=== PATIENT | male | born 1955 | race Caucasian/White ===

== ENCOUNTER 2017-02-01 13:20 | Inpatient (IN) | payer OTHER ==
[~2017-02-01] VITALS: Ht 188 cm; Wt 147.9 kg
[2017-02-01] MEDS ORDERED: METO50TA PO (14:43)
[2017-02-02] MEDS ORDERED: NEOSTIGMINE 3 MG/3 ML SYR IV ONE (07:32)
[2017-02-02] MEDS ORDERED: PROPOFOL 200 MG/20 ML AMP IV ONE (07:32)
[2017-02-02] MEDS ORDERED: ONDANSETRON HCL 4 MG/2 ML VIAL IV PUSH ONE (07:33)
[2017-02-02] MEDS ORDERED: PHENYLEPH/NS 1000 MCG/10 ML SYR IV ONE (07:33)
[2017-02-02] MEDS ORDERED: LACTATED RINGER'S 1000 ML INJ 1,000 ML IV ONE (07:33)
[2017-02-02] MEDS ORDERED: LACTATED RINGER'S 1000 ML IV PRN (12:00)
[2017-02-02] MEDS ORDERED: POVIDONE IODINE 5% (ANTISEPSIS KIT) 4 APPLICATIONS EACH NARE PRN (12:00)
[2017-02-02] MEDS ORDERED: SODIUM CHLORID 0.9% 500 ML IV PRN (12:00)
[2017-02-02] MEDS ORDERED: INSULIN HUMAN REGULAR 1,000 UNITS/10 ML VIAL SQ PRN (12:00)
[2017-02-02] MEDS ORDERED: CHLORHEXIDINE GLUCONATE 2 % 1 PACK (2 CLOTHS) TOPICAL PRN (12:00)
[2017-02-02] MEDS ORDERED: METOPROLOL TARTRATE 25 MG TAB PO PRN (12:00)
[2017-02-02] MEDS: POVIDONE IODINE 7.5% SCRUB 118 ML BOTTLE TOPICAL SCH (12:15)
[2017-02-02] MEDS ORDERED: ATOR40TA16 PO (12:22)
[2017-02-02 12:24] VITALS: BP 153/86; PULSE 98; RESP 18; TEMP 97; O2SAT 98
[2017-02-02] MEDS: EXPAREL PERI-ARTICULAR INJECTION (TOTAL VOL. 60 ML) P-ARTICULR SCH ×4 (12:30→16:49)
[2017-02-02] MEDS: TRANEXAMIC ACID IV SCH ×2 (12:30→16:35)
[2017-02-02] MEDS: SODIUM CHLORIDE 0.9% IV SCH ×2 (12:30→16:35)
[2017-02-02] MEDS ORDERED: APREPITANT 40 MG CAP ONE (13:51)
[2017-02-02] MEDS ORDERED: GENTAMICIN SULFATE 80 MG/2 ML VIAL ONE ×2 (15:03→17:20)
[2017-02-02] MEDS ORDERED: VANCOMYCIN HCL 1000 MG VIAL ONE ×2 (15:05→15:14)
[2017-02-02] MEDS ORDERED: fentaNYL CITRATE 250 MCG/5 ML AMP ONE ×2 (15:09→19:05)
[2017-02-02] MEDS ORDERED: ACETAMINOPHEN 1000 MG/100 ML VIAL IV ONE (15:09)
[2017-02-02] MEDS ORDERED: MIDAZOLAM HCL 2 MG/2 ML VIAL ONE (15:09)
[2017-02-02] MEDS ORDERED: TOBRAMYCIN SULF 0.3% OPHT SOLN 5 ML BTL ONE (15:14)
[2017-02-02] MEDS ORDERED: DEXAMETHASONE SOD PHOS 4 MG/ML VIAL ONE (15:20)
[2017-02-02] MEDS ORDERED: TOBRAMYCIN SULFATE 1200 MG VIAL OTHER ONE (16:49)
[2017-02-02] MEDS ORDERED: AMIODARONE HCL 150 MG/3 ML VIAL ONE (17:00)
[2017-02-02] MEDS ORDERED: ONDANSETRON HCL 4 MG/2 ML VIAL IVP PRN (18:30)
[2017-02-02] MEDS ORDERED: BISACODYL 10 MG SUPP RECTAL PRN (18:30)
[2017-02-02] MEDS ORDERED: NALOXONE HCL 0.4 MG/ML AMP IV PRN (18:30)
[2017-02-02] MEDS ORDERED: ACETAMINOPHEN/HYDROcodone 325 MG/5 MG TAB PO PRN ×2 (18:30)
[2017-02-02] MEDS ORDERED: MAGNESIUM HYDROXIDE SUSP 30 ML CUP PO PRN (18:30)
[2017-02-02] MEDS ORDERED: Post-op Orders (for Pharmacy) MISC XX ONE (18:30)
[2017-02-02] MEDS ORDERED: SODIUM CHLORIDE 0.9% FLUSH 5 ML FLUSH IVF PRN (18:30)
[2017-02-02] MEDS ORDERED: ALUMINUM/MAGNESIUM/SIMETH 30 ML CUP PO PRN (18:30)
[2017-02-02] MEDS ORDERED: MORPHINE SULFATE 4 MG/ML INJ IV PUSH PRN (18:30)
[2017-02-02] MEDS ORDERED: diphenhydrAMINE HCL 50 MG/ML VIAL IV PRN (18:30)
--- NOTE | 2017-02-02 18:41 | PD.OP ---
Operative Report Date of Surgery: Feb 02, 2017 Preoperative Diagnosis: Left knee infected total knee arthroplasty. Postoperative Diagnosis: Left knee infected total knee arthroplasty.. 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 Procedure: Left knee irrigation and debridement with removal of total knee arthroplasty and implantation of antibiotic spacer. Left knee sequestrectomy for osteoarthritis of patella and distal femur. Left knee application of antibiotic beads. Anesthesia: Gen. Surgeon: Nnamdi Kebede Proc Tech(s): MIRELLA Marrero The surgical procedure was assisted by my Advanced Registered Nurse Practitioner. My TUBE FITTER presence was necessary throughout this case for the manipulation and positioning of the surgical extremity. My TUBE FITTER was assisting me throughout the duration of this procedure. The skill set of an Advance Registered Nurse Practitioner was medically necessary to complete this procedure. During the surgical case, the interventional technologist was working at the back table and the Advance Registered Nurse Practitioner was directly assisting me. Operation and Findings: IMPLANTS: ExacTech large antibiotic spacer. Stimulan antibiotic beads ESTIMATED BLOOD LOSS: 350 cc TOURNIQUET TIME: 58 minutes at 300 mmHg pressure. JUSTIFICATION FOR PROCEDURE: The patient has a history of a knee replacement performed by another physician. He presented with a septic joint which was acute in nature. He was treated for a hospital with irrigation and debridement and polyethylene liner exchange. The patient was found to have methicillin sensitive Staphylococcus aureus. He was treated with intravenous antibiotics followed by oral antibiotics. The patient just recently developed a new swelling in the knee which was aspirated showing very high white cell count suspicious for recurrent infection. He understood the risks and benefits of surgery please see the office notes for further details. PROCEDURE: The patient was brought back to the operative theatre. Adequate anesthesia was obtained. The patient received intravenous vancomycin AFTER the intraoperative cultures were obtained. The lower extremity was prepped and draped in the usual sterile fashion.The leg was elevated for 3 minutes, the tourniquet was raised. A standard anterior incision was performed followed by medial parapatellar arthrotomy was performed. We found approximately 100 cc of purulent fluid. We took 2 culture swabs of this. Later in the case we took 2 deep tissue cultures 1 from bone and one from the synovium. We exposed the patella which initially appeared to be well fixed but then was found to be fairly loose. We found deep infection in the bone underneath the patella. We used an oscillating saw to shave down some of the bone and we also used a curette on the areas of osteomyelitis to perform a sequestrectomy. There was significant synovial hyperplasia which was excised. There were a yellowish fragments of synovium which were proliferative which were removed. We used osteotomes to remove the distal femur and we found several pockets of purulence at the distal end of the femur and by the posterior condyles. This represented osteomyelitis which was curetted and removed for the sequestrectomy. We did enter the distal femoral canal as well which had some purulence. The polyethylene was removed which was in good condition. The proximal tibial prosthesis was removed. This was well fixed with no signs of deep infection beneath it. There was abundant cement which was all removed. We entered the proximal tibial canal and did not find any purulence. We then used a wire brush to clean the femoral and tibial canals. We completed our synovectomy in the gutters and posterior aspect of the knee at this point. We did find a small abscess up by the extensor mechanism anteriorly as well which was debrided. After complete debridement, including a lavage of 6 L of saline laden with antibiotics , was performed we exchanged the instruments, placed new drapes on top, and exchanged gloves. We sized the femur for the ExacTech implant. This implant has antibiotics within it. We mixed cement which had added vancomycin to it. The cement already had tobramycin. We have previously mixed stimulan antibiotic beads which we added tobramycin and vancomycin. This had been done on the clean back table. The tourniquet was released. Hemostasis was achieved. The ExacTech spacer was cemented into position. We then placed the beads around this. We placed a deep drain. We closed the extensor mechanism with #2 strata fix augmented with Prolene. Skin was closed with 2-0 Monocryl followed by mitchell. The leg was dressed. Postop plan is for 50% weightbearing with the canvas knee splint. DVT prophylaxis will be performed with SCDs, ELIANE hose, early mobilization, and Lovenox followed by aspirin. We will request a infectious disease consultation. Note that the patient was found to have atrophic fibrillation with a rapid response prior to surgery. Since the patient had purulence in the knee we decided to move forward with surgical management. This was taken care of by the anesthesiologist to obtain a better rate. We will consult an brewmaster in the ICU for management of his medical conditions and we will also ask for medical consultation as well. Nnamdi Kebede MD Feb 02, 2017 18:41
[2017-02-02] MEDS ORDERED: ASPI325T PO (18:43)
[2017-02-02] MEDS ORDERED: ENOX40P SQ (18:43)
[2017-02-02] MEDS ORDERED: NORC5TAB PO (18:43)
[2017-02-02] MEDS ORDERED: HYDROmorphone HCL PF 2 MG/ML VIAL IV PUSH PRN (18:45)
[2017-02-02] MEDS ORDERED: DO NOT ADM ANY ANTICOAGULANT DRUGS PRN (18:54)
[2017-02-02] MEDS ORDERED: *HYDROmorphone PF 1 MG VIAL PERIprocedural Use ONLY ONE (19:08)
[2017-02-02] MEDS: SODIUM CHLOR 0.9% 1000 ML INJ 1,000 ML IV SCH (19:30)
--- NOTE | 2017-02-02 19:55 | RADRPT ---
EXAM DATE/TIME: 02/02/2017 20:06 [facility] COMPARISON: No previous studies available for comparison. INDICATIONS : Post op, removal of prosthesis. MEDICAL HISTORY : None. SURGICAL HISTORY : None. Left total knee ENCOUNTER: Initial ACUITY: 1 day PAIN SCORE: 10/10 LOCATION: Left knee FINDINGS: Two view examination of the left knee demonstrates postoperative findings with placement of drain in soft tissues. Skin mitchell anteriorly. Extensive soft tissue swelling. Joint effusion present. Radiop aque beads overlie the distal femur and proximal tibia. CONCLUSION: 1. Postoperative changes as above. Normal alignment. Nikolay Dowling MD on February 02, 2017 at 19:51 Board Certified Radiologist. This report was verified electronically.
[2017-02-02] MEDS ORDERED: TRANEXAMIC ACID INJ 1,450 MG in SODIUM CHLORIDE 0.9% INJ 100 ML IV SCH (20:00)
[2017-02-02] MEDS: SODIUM CHLORIDE 0.9% FLUSH 5 ML FLUSH IVF SCH (21:00)
[2017-02-02] MEDS: CLINDAMYCIN INJ 900 MG in SODIUM CHLORIDE 0.9% INJ 100 ML IV SCH (21:58)
[2017-02-03] VITALS (17 sets, daily range): BP systolic 132–163; BP diastolic 73–94; PULSE 52–91; RESP 18; TEMP 97.3–98.6; O2SAT 95–98
[2017-02-03] MEDS: BENZONATATE 100 MG CAP PO PRN ×4 (00:25→21:35)
[2017-02-03] MEDS: SODIUM CHLOR 0.9% 1000 ML INJ 1,000 ML IV SCH ×2 (04:22→14:22)
[2017-02-03] MEDS: VANCOMYCIN INJ 1,000 MG in SODIUM CHLOR 0.9% 250 ML INJ 250 ML IV SCH ×2 (05:00→16:52)
[2017-02-03] MEDS: CLINDAMYCIN INJ 900 MG in SODIUM CHLORIDE 0.9% INJ 100 ML IV SCH ×2 (05:00→13:44)
[2017-02-03 06:20] LABS: HEMATOCRIT 32.2 % (39.0-51.0); MEAN CELL VOLUME 83.8 FL (80.0-100.0); MEAN CORPUSCULAR HGB CONC 33.4 % (32.0-36.0); PLATELET COUNT 368 TH/MM3 (150-450); RED BLOOD COUNT 3.84 MIL/MM3 (4.50-5.90); RED CELL DISTRIBUTION WIDTH 13.9 % (11.6-17.2); REVIEW FLAG FINAL; WHITE BLOOD COUNT 11.1 TH/MM3 (4.0-11.0)
[2017-02-03] MEDS: SODIUM CHLORIDE 0.9% FLUSH 5 ML FLUSH IVF SCH ×2 (09:00→21:00)
--- NOTE | 2017-02-03 10:13 | MB ---
cc: BARAK VERAS DATE OF CONSULTATION: 02/03/2017 1956 REASON FOR CONSULTATION Atrial fibrillation. PAST MEDICAL HISTORY 61-year-old male with a past medical history significant for chronic atrial fibrillation status post three ablations, hypertension, obesity, hyperlipidemia , that was admitted yesterday for left knee I&D, removal of left total knee arthroplasty and implantation of antibiotic spacer in the setting of left knee osteomyelitis. The patient reports that after the procedure he had an episode of atrial fibrillation in the PACU. Thus, cardiology has been consulted for further management and evaluation. He denied any chest pain, shortness of breath, syncope, fevers, chills, nausea, vomiting. Of note, after the ablations he is off chronic oral anticoagulation. REVIEW OF SYSTEMS Negative except for what is mentioned in the HPI. PAST MEDICAL HISTORY 1. Hypertension. 2. Hyperlipidemia. 3. Atrial fibrillation, atrial flutter status post ablations. 4. Obesity. Home medications: 1. Aspirin 325 mg p.o. daily. 2. Lipitor 40 mg p.o. daily. 3. Hydrocodone acetaminophen 1-2 tabs p.o. q.4 hour p.r.n. for pain. 4. Metoprolol 50 mg p.o. b.i.d. FAMILY HISTORY Noncontributory. SOCIAL HISTORY Denies alcohol use, smoking or illicit drug use. PHYSICAL EXAMINATION VITAL SIGNS: Temperature 97, heart rate 73, respiratory rate 18, blood pressure 145/87, O2 sat 97% on room air. GENERAL: Awake, alert and oriented x 3, in no acute distress. NECK: No JVD, no carotid bruits. HEART: Regular rate and rhythm. No murmurs, rubs or gallops. LUNGS: Clear to auscultation bilaterally. No wheezes or rhonchi or rales. ABDOMEN: Obese. Positive bowel sounds, soft, nontender, nondistended. EXTREMITIES: No cyanosis or edema. LABORATORY DATA CBC hemoglobin 10, hematocrit 32, CRP 5.54. EKG Sinus rhythm with a right bundle branch block. ASSESSMENT/PLAN 61-year-old male with an episode of atrial fibrillation post surgery, now resolved in sinus rhythm. He remains afebrile, hemodynamically stable with no cardiovascular complaints. Brief atrial fibrillation episode most likely from the catecholaminergic response to stress in the setting of the recent surgery. No EKG changes to suggest of ischemia. 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 The patient should follow with cardiology on an outpatient basis. Thank you for the opportunity to take part in the care of this patient. Will be available p.r.n. for any other questions or concerns. Barak Veras MD COMFORT FILLER/TLL /9:26 AM /9:44 AM MTDNacho
[2017-02-03] MEDS: POVIDONE IODINE 7.5% SCRUB 118 ML BOTTLE TOPICAL SCH (12:15)
--- NOTE | 2017-02-03 15:53 | PD.ORT.PN ---
Subjective Subjective Remarks feels ok, no numbness or tingling drain emptied with 80cc serosang Objective Vitals Vital Signs Date Time Temp Pulse Resp B/P Pulse Ox O2 Delivery O2 Flow Rate FiO2 02/03/17 15:10 82 02/03/17 14:00 86 02/03/17 13:00 79 02/03/17 12:00 80 02/03/17 11:00 97.8 91 18 154/87 95 02/03/17 10:00 90 02/03/17 09:00 90 02/03/17 08:00 90 02/03/17 07:00 97.9 88 18 145/87 97 02/03/17 07:00 68 02/03/17 05:35 98.6 73 18 132/73 98 02/03/17 00:00 97.3 79 18 144/87 96 02/02/17 23:00 72 16 152/84 95 Nasal Cannula 2 02/02/17 22:00 72 16 169/95 95 Nasal Cannula 2 02/02/17 21:00 73 14 172/95 95 Nasal Cannula 2 02/02/17 20:15 97.0 70 12 162/92 98 Nasal Cannula 2 02/02/17 20:00 69 12 163/89 97 Nasal Cannula 2 02/02/17 19:45 63 14 164/88 97 Nasal Cannula 2 02/02/17 19:30 60 14 163/90 97 Nasal Cannula 2 02/02/17 19:15 81 14 147/81 97 Nasal Cannula 3 02/02/17 19:00 118 14 183/122 96 Nasal Cannula 3 02/02/17 18:53 97.6 122 14 160/119 99 Nasal Cannula 3 I/O 02/02/17 02/02/17 02/02/17 02/03/17 02/03/17 02/03/17 07:00 15:00 23:00 07:00 15:00 23:00 Intake Total 2133 ml 2060 ml Output Total 1190 ml 1870 ml Balance 943 ml 190 ml Intake Oral 860 ml IV Total 433 ml 1200 ml Other 1700 ml Output Urine Total 975 ml 1800 ml Drainage Total 165 ml 70 ml Estimated Blood Loss 50 ml # Voids 1 Result Diagram: 02/03/17 0505 Imaging Last 24 hours Impressions Knee X-Ray 02/02/17 1822 Signed Impressions: Service Date/Time: Thursday, February 02, 2017 20:06 - CONCLUSION: 1. Postoperative changes as above. Normal alignment. Nikolay Dowling MD Objective Remarks L leg dressed, and clean 2+ dp moves toes serosang in drain calf non-tender Assessment & Plan Assessment and Plan POD #1 s/p L knee Removal of TKA with ABX spacer/ABX beads, and I&D of osteomyelitis. Culx are still pending (recent h/o MSSA from recent I&D with poly exchange) Lovenox 50% WB with CKS Appreciate cardiac input (brief a. fib post-op, currently in NSR), no active treatment recommended other than telemetry D/C drain tomorrow Pending ID consult -> will need PICC line Nnamdi Kebede MD Feb 03, 2017 15:52
--- NOTE | 2017-02-03 16:06 | HHI.DCPOC ---
Discharge Care Plan Diagnosis: (1) Infection of total left knee replacement Your Health Problems Are: Difficulty with ADL Goals to Promote Your Health * To prevent worsening of your condition and complications * To maintain your health at the optimal level Directions to Meet Your Goals Take your medications as prescribed Follow your dietary instruction Follow activity as directed Keep your appointments as scheduled Take your immunizations and boosters as scheduled If your symptoms worsen call your PCP, if no PCP go to Urgent Care Center or Emergency Room Smoking is Dangerous to Your Health. Avoid second hand smoke Call the 24-hour hour crisis hotline for domestic abuse at Jeremiah Younger Feb 03, 2017 16:05
--- NOTE | 2017-02-03 16:07 | HHI.FF ---
Face to Face Verification Diagnosis: (1) Infection of total left knee replacement Physical Therapy Gait training, Transfer training, bed to chair Knee: Other Canvas Knee Splint: At all times Left LE Weight Bearing: Partial WB 50% Left LE Range of Motion: Active ROM Nursing Nursing: Arleen teaching, Dressing changes Dressing Changes: Daily dressing change I have seen patient Estevan Stafford on 02/03/17. My clinical findings support the need for the requested home health care services because: Limited ability to care for self High risk of falls I certify that my clinical findings support that this patient is homebound because: Post-op weakness Unsteady gait/balance Jeremiah Younger Feb 03, 2017 16:07
[2017-02-03] MEDS ORDERED: COMMODE 3-IN-11 MIS (16:10)
[2017-02-03] MEDS ORDERED: WALKER WHEELS/F1 MIS (16:10)
[2017-02-03] MEDS: ENOXAPARIN SODIUM 40 MG/0.4 ML SYRINGE SQ SCH (16:52)
[2017-02-03] MEDS ORDERED: ACETAMINOPHEN 325 MG TAB PO ONE (18:30)
[2017-02-03] MEDS: MULTIVITAMINS/MINERALS THERAPEUTIC TAB PO SCH (21:36)
[2017-02-03] MEDS: METOPROLOL TARTRATE 50 MG TAB PO SCH (21:36)
[2017-02-03] MEDS: DOCUSATE SODIUM 100 MG CAP PO SCH (21:36)
[2017-02-03] MEDS: ZOLPIDEM TARTRATE 5 MG TAB PO PRN (21:36)
--- NOTE | 2017-02-03 22:44 | PD.ID.CON ---
History of Present Illness Service ID Consult Requested By Dr Kebede Reason for Consult L prosthetic knee infx Primary Care Physician No Primary Care Physician Diagnoses: History of Present Illness 61 yo male with h/o L knee prosthesis initially put in 4-5 yrs ago infx developped MSSA infection of prosthetic knee after a fall He was treated with IV abx, followed by oral abx, and sp surgery n [place] He was given IV followed by oral abx He is seen by Dr Bright He developped angioedema a/w Keflex use during this treatment He con to have persistent L knee pain and swelling despite of abxc He saw Dr Kebede ad he performed aspiration of synovial fluid for clx and it was sent to [facility] pt underwent Left knee irrigation and debridement with removal of total knee arthroplasty and implantation of antibiotic spacer,Left knee sequestrectomy for osteoarthritis of patella and distal femur and Left knee application of antibiotic beads. Op report was reviewed: deep infection in the bone underneath the patella, osteomyelitis, several pockets of purulence at the distal end of the femur and by the posterior condyles. Review of Systems Except as stated in HPI: all other systems reviewed are Neg Past Family Social History Allergies: Coded Allergies: Keflex (Verified Allergy, Severe, lips swell, 02/02/17) Lisinopril (Verified Allergy, Severe, Swelling, 02/01/17) ANGIOEDEMA Morphine (Verified Allergy, Severe, Confusion, 02/01/17) CAUSES CHEST PAIN Past Medical History morbid obesity obstructiv sleep apnea HTN a fib Past Surgical History TKA b/l R ankle ORIF ablation x 3 Active Ordered Medications Medications where reviewed in EMR Antibiotics Include: vancomycin clindamycin Family History Non-Contributory. Social History No Tobacco. social ETOH. No Illicit Drugs. Physical Exam Vital Signs Vital Signs Date Time Temp Pulse Resp B/P Pulse Ox O2 Delivery O2 Flow Rate FiO2 02/03/17 18:05 84 02/03/17 17:00 82 02/03/17 16:00 86 02/03/17 15:10 82 02/03/17 15:00 97.7 80 18 163/94 98 02/03/17 14:00 86 02/03/17 13:00 79 02/03/17 12:00 80 02/03/17 11:00 97.8 91 18 154/87 95 02/03/17 10:00 90 02/03/17 09:00 90 02/03/17 08:00 90 02/03/17 07:00 97.9 88 18 145/87 97 02/03/17 07:00 68 02/03/17 05:35 98.6 73 18 132/73 98 02/03/17 00:00 97.3 79 18 144/87 96 02/02/17 23:00 72 16 152/84 95 Nasal Cannula 2 Physical Exam CONSTITUTIONAL/GENERAL: This is a morbidly obese male patient, in no apparent distress. TUBES/LINES/DRAINS: SKIN: No jaundice, rashes, or lesions. Skin temperature appropriate. Not diaphoretic. HEAD: Atraumatic. Normocephalic. EYES: Pupils equal and round and reactive. Extraocular motions intact. No scleral icterus. No injection or drainage. Fundi not examined. ENT: Hearing grossly normal. Nose without bleeding or purulent drainage. Throat without visible erythema, exudates, masses, or lesions. NECK: Trachea midline. Supple, nontender. CARDIOVASCULAR: Regular rate and rhythm without murmurs, gallops, or rubs. No JVD. Peripheral pulses symmetric. RESPIRATORY/CHEST: Symmetric, unlabored respirations. Clear to auscultation. Breath sounds equal bilaterally. No wheezes, rales, or rhonchi. GASTROINTESTINAL: Abdomen soft, non-tender, nondistended. No hepato-splenomegaly , or palpable masses. No guarding. Bowel sounds present. GENITOURINARY: Without palpable bladder distension. MUSCULOSKELETAL: Extremities without clubbing, cyanosis, or edema. LLE with surgical dresising, brace in place, inact HEMANTH dran with small amount of serosang dc No mottling or clubbing. LYMPHATICS: No palpable cervical or supraclavicular adenopathy. NEUROLOGICAL: Awake and alert. Motor and sensory grossly within normal limits. Follows commands. Moves all extremities. PSYCHIATRIC: No obvious anxiety/depression.. Laboratory Laboratory Tests Test 02/03/17 05:05 White Blood Count 11.1 Red Blood Count 3.84 Hemoglobin 10.8 Hematocrit 32.2 Mean Corpuscular Volume 83.8 Mean Corpuscular Hemoglobin 28.0 Mean Corpuscular Hemoglobin 33.4 Concent Red Cell Distribution Width 13.9 Platelet Count 368 Mean Platelet Volume 6.9 Date/Time Procedure Status Source Growth 02/02/17 16:56 Gram Stain - Final Resulted Wound Knee 02/02/17 16:56 Wound Culture - Preliminary Resulted Wound Knee NO GROWTH IN 24 HOURS. 02/02/17 16:56 Fungal Smear - Final Resulted Wound Knee NO FUNGAL ELEMENTS SEEN. 02/02/17 16:56 Fungal Culture Resulted Wound Knee Pending 02/02/17 16:56 Acid Fast Stain Received Wound Knee Pending 02/02/17 16:56 Mycobacterial Culture Received Wound Knee Pending Result Diagram: 02/03/17 0505 Imaging Last Impressions Knee X-Ray 02/02/17 1822 Signed Impressions: Service Date/Time: Thursday, February 02, 2017 20:06 - CONCLUSION: 1. Postoperative changes as above. Normal alignment. Nikolay Dowling MD Assessment and Plan Assessment and Plan Left knee infected total knee arthroplasty.. 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 Previously MSSA HIgh grade Keflex allergy, preclusive of use of beta lactams cont vancomycin, target trough 15-20 will get clsx result from [facility] -will fu op clx Nano Kim MD Feb 03, 2017 22:44
[2017-02-04] VITALS (23 sets, daily range): BP systolic 121–164; BP diastolic 71–90; PULSE 58–86; RESP 18; TEMP 97.5–98.2; O2SAT 95–99
[2017-02-04] MEDS: SODIUM CHLOR 0.9% 1000 ML INJ 1,000 ML IV SCH ×3 (00:22→21:53)
[2017-02-04] MEDS: CLINDAMYCIN INJ 900 MG in SODIUM CHLORIDE 0.9% INJ 100 ML IV SCH ×4 (01:14→21:53)
[2017-02-04] MEDS: VANCOMYCIN INJ 1,000 MG in SODIUM CHLOR 0.9% 250 ML INJ 250 ML IV SCH ×2 (05:53→16:28)
[2017-02-04] MEDS: ACETAMINOPHEN 325 MG TAB PO PRN ×3 (05:58→21:52)
[2017-02-04 07:02] LABS: HEMATOCRIT 31.9 % (39.0-51.0); MEAN CELL VOLUME 84.8 FL (80.0-100.0); MEAN CORPUSCULAR HEMOGLOBIN 28.1 PG (27.0-34.0); MEAN CORPUSCULAR HGB CONC 33.1 % (32.0-36.0); PLATELET COUNT 350 TH/MM3 (150-450); RED BLOOD COUNT 3.76 MIL/MM3 (4.50-5.90); REVIEW FLAG FINAL; WHITE BLOOD COUNT 9.1 TH/MM3 (4.0-11.0)
[2017-02-04] MEDS: SODIUM CHLORIDE 0.9% FLUSH 5 ML FLUSH IVF SCH ×2 (08:58→21:00)
[2017-02-04] MEDS: MULTIVITAMINS/MINERALS THERAPEUTIC TAB PO SCH ×2 (08:58→21:51)
[2017-02-04] MEDS: DOCUSATE SODIUM 100 MG CAP PO SCH ×2 (08:58→21:51)
[2017-02-04] MEDS: METOPROLOL TARTRATE 50 MG TAB PO SCH ×2 (08:58→21:52)
[2017-02-04] MEDS: POVIDONE IODINE 7.5% SCRUB 118 ML BOTTLE TOPICAL SCH (11:23)
--- NOTE | 2017-02-04 13:06 | PD.ORT.PN ---
Subjective Post Op Day #: 2 Subjective Remarks Patient in bed c/o moderate pain. Patient has been ambulatory. Objective Vitals Vital Signs Date Time Temp Pulse Resp B/P Pulse Ox O2 Delivery O2 Flow Rate FiO2 02/04/17 12:00 68 02/04/17 11:00 63 02/04/17 11:00 98.1 72 18 150/83 97 02/04/17 10:00 81 02/04/17 09:00 80 02/04/17 08:04 82 02/04/17 07:15 76 02/04/17 07:15 98.2 71 18 152/84 99 02/04/17 06:00 60 02/04/17 05:04 60 02/04/17 04:14 59 02/04/17 03:03 61 02/04/17 03:03 98.2 69 18 135/81 98 02/04/17 00:00 98.2 69 18 122/77 98 02/03/17 20:00 98.0 91 18 157/90 98 02/03/17 19:00 90 02/03/17 18:05 84 02/03/17 17:00 82 02/03/17 16:00 86 02/03/17 15:10 82 02/03/17 15:00 97.7 80 18 163/94 98 02/03/17 14:00 86 I/O 02/03/17 02/03/17 02/03/17 02/04/17 02/04/17 02/04/17 07:00 15:00 23:00 07:00 15:00 23:00 Intake Total 2060 ml 1680 ml 2040 ml Output Total 1870 ml 2830 ml 1825 ml Balance 190 ml -1150 ml 215 ml Intake Oral 860 ml 1680 ml 740 ml IV Total 1200 ml 1300 ml Output Urine Total 1800 ml 2750 ml 1775 ml Drainage Total 70 ml 80 ml 50 ml # Bowel Movements 0 Result Diagram: 02/04/17 0445 Imaging Last 24 hours Impressions Knee X-Ray 02/02/17 1822 Signed Impressions: Service Date/Time: Thursday, February 02, 2017 20:06 - CONCLUSION: 1. Postoperative changes as above. Normal alignment. Nikolay Dowling MD Objective Remarks Dressing changed with scant drainage around drain, no drainage at incision. No redness or s/s of infection. Incision is well approximated with surgical clips intact. 2+ dp moves toes serosang in drain calf non-tender Assessment & Plan Ortho Post Op Day #: 2 Problem List: Assessment and Plan POD #2 s/p L knee Removal of TKA with ABX spacer/ABX beads, and I&D of osteomyelitis. Culx are still pending (recent h/o MSSA from recent I&D with poly exchange). Preliminary results show Gram + Cocci Lovenox 50% WB with CKS Appreciate cardiac input (brief a. fib post-op, currently in NSR), no active treatment recommended other than telemetry D/C drain tomorrow if drainage has subsided ID to manage ABX-> will need PICC line Jeremiah Younger Feb 04, 2017 13:06
[2017-02-04] MEDS: ENOXAPARIN SODIUM 40 MG/0.4 ML SYRINGE SQ SCH (18:19)
[2017-02-04] MEDS: BENZONATATE 100 MG CAP PO PRN (21:51)
[2017-02-04] MEDS: ZOLPIDEM TARTRATE 5 MG TAB PO PRN (21:52)
[2017-02-05] VITALS (27 sets, daily range): BP systolic 135–159; BP diastolic 81–93; PULSE 56–106; TEMP 97.4–97.8; O2SAT 96–99
[2017-02-05] MEDS: CLINDAMYCIN INJ 900 MG in SODIUM CHLORIDE 0.9% INJ 100 ML IV SCH ×3 (05:21→21:29)
[2017-02-05] MEDS: VANCOMYCIN INJ 1,000 MG in SODIUM CHLOR 0.9% 250 ML INJ 250 ML IV SCH ×2 (05:21→16:41)
[2017-02-05] MEDS: SODIUM CHLOR 0.9% 1000 ML INJ 1,000 ML IV SCH ×2 (06:00→11:51)
[2017-02-05 06:53] LABS: AUTOMATED NEUTROPHIL # 4.7 TH/MM3 (1.8-7.7); BASOPHIL # 0.1 TH/MM3 (0-0.2); BASOPHIL % 0.9 % (0.0-2.0); EOSINOPHIL # 0.5 TH/MM3 (0-0.4); HEMATOCRIT 32.4 % (39.0-51.0); HEMO FLAGS DIFF FINAL; LYMPH % 28.1 % (9.0-44.0); LYMPHOCYTE # 2.5 TH/MM3 (1.0-4.8); MEAN CELL VOLUME 83.7 FL (80.0-100.0); MEAN CORPUSCULAR HEMOGLOBIN 27.5 PG (27.0-34.0); MEAN CORPUSCULAR HGB CONC 32.9 % (32.0-36.0); MONO % 11.6 % (0.0-8.0); NEUT % 53.4 % (16.0-70.0); PLATELET COUNT 339 TH/MM3 (150-450); RED BLOOD COUNT 3.87 MIL/MM3 (4.50-5.90); WHITE BLOOD COUNT 8.8 TH/MM3 (4.0-11.0)
[2017-02-05 07:06] LABS: BICARBONATE 25.2 MEQ/L (21.0-32.0); POTASSIUM 3.7 MEQ/L (3.5-5.1)
[2017-02-05] MEDS: SODIUM CHLORIDE 0.9% FLUSH 5 ML FLUSH IVF SCH ×2 (09:00→21:00)
[2017-02-05] MEDS: DOCUSATE SODIUM 100 MG CAP PO SCH ×2 (09:26→21:29)
[2017-02-05] MEDS: METOPROLOL TARTRATE 50 MG TAB PO SCH ×2 (09:27→21:29)
[2017-02-05] MEDS: ACETAMINOPHEN 325 MG TAB PO PRN ×2 (09:27→16:45)
[2017-02-05] MEDS: MULTIVITAMINS/MINERALS THERAPEUTIC TAB PO SCH ×2 (09:27→21:29)
[2017-02-05] MEDS ORDERED: SODIUM CHLORIDE 0.9% FLUSH 10 ML FLUSH IV FLUSH PRN (15:30)
--- NOTE | 2017-02-05 16:07 | RADRPT ---
EXAM DATE/TIME: 02/05/2017 15:19 [facility] COMPARISON: CHEST PA & LAT, February 01, 2017, 14:34. INDICATIONS : Evaluate for picc line placement. MEDICAL HISTORY : None. SURGICAL HISTORY : Heart Ablasions. ENCOUNTER: Subsequent ACUITY: 1 day PAIN SCORE: Non-responsive. LOCATION: chest FINDINGS: A single view of the chest demonstrates the lungs to be symmetrically aerated without infiltrate or e ffusion. Questionable dense nodule laterally in the region of the lingula may represent a small granu lomatous type calcification. The cardiomediastinal contours are unremarkable. Osseous structures ar e intact. Right upper extremity PICC line with the tip projecting over the central venous system. CONCLUSION: 1. Right upper extremity PICC line with the tip projecting over the central venous system. 2. Questionable sub-centimeter dense nodule in the left lingular region laterally may represent a sma ll granulomatous calcification. Lungs are otherwise clear. Alfonzo Valentine MD on February 05, 2017 at 16:00 Board Certified Radiologist. This report was verified electronically.
[2017-02-05] MEDS: ENOXAPARIN SODIUM 40 MG/0.4 ML SYRINGE SQ SCH (16:42)
--- NOTE | 2017-02-05 17:04 | PD.ORT.PN ---
Subjective Post Op Day #: 3 Subjective Remarks Patient in bed c/o moderate pain. Patient has been ambulatory but is having a difficult time with transfers. Patient had BM today. Patient requesting rehab. Objective Vitals Vital Signs Date Time Temp Pulse Resp B/P Pulse Ox O2 Delivery O2 Flow Rate FiO2 02/05/17 15:00 97.5 79 145/88 98 02/05/17 13:00 72 02/05/17 12:00 74 02/05/17 11:00 66 02/05/17 11:00 97.4 69 159/86 98 02/05/17 10:00 72 02/05/17 09:46 90 02/05/17 08:00 106 02/05/17 08:00 98 02/05/17 07:30 97.7 106 153/93 98 02/05/17 07:00 98 02/05/17 06:21 58 02/05/17 05:00 60 02/05/17 04:39 60 143/86 99 02/05/17 04:00 58 02/05/17 03:00 60 02/05/17 02:00 56 02/05/17 01:00 58 02/05/17 00:37 58 135/82 99 02/05/17 00:00 56 02/04/17 23:00 58 02/04/17 22:00 76 02/04/17 21:00 72 02/04/17 20:26 98 02/04/17 20:00 80 02/04/17 19:00 72 02/04/17 19:00 97.5 78 147/80 97 02/04/17 18:00 69 02/04/17 17:00 73 I/O 02/04/17 02/04/17 02/04/17 02/05/17 02/05/17 02/05/17 07:00 15:00 23:00 07:00 15:00 23:00 Intake Total 2040 ml 3394 ml 480 ml Output Total 1825 ml 3740 ml 1690 ml Balance 215 ml -346 ml -1210 ml Intake Oral 740 ml 2640 ml 480 ml IV Total 1300 ml 754 ml Output Urine Total 1775 ml 3720 ml 1650 ml Stool Total 0 ml Drainage Total 50 ml 20 ml 40 ml # Voids 9 # Bowel Movements 0 Result Diagram: 02/05/17 0508 02/05/17 0508 Imaging Last 24 hours Impressions Knee X-Ray 02/02/17 1822 Signed Impressions: Service Date/Time: Thursday, February 02, 2017 20:06 - CONCLUSION: 1. Postoperative changes as above. Normal alignment. Nikolay Dowling MD Objective Remarks Dressing C/D/I. Drain in place with minimal output over 24 hours. ( < 100 CC) 2+ dp, + NVI moves toes serosang in drain calf non-tender Assessment & Plan Ortho Post Op Day #: 3 Problem List: Assessment and Plan POD #3 s/p L knee Removal of TKA with ABX spacer/ABX beads, and I&D of osteomyelitis. Culx showing Staph Aureus Lovenox 50% WB with CKS Patient has not had any episodes of A-Fib per nursing. If stable per cardiac standpoint (cardiology), I have no problems with patient being downgraded to regular floor. D/C drain today due to decreased output. ID to manage ABX-> PICC line in place. Jeremiah Younger Feb 05, 2017 17:04
[2017-02-06] VITALS (23 sets, daily range): BP systolic 128–162; BP diastolic 72–85; PULSE 53–82; RESP 16–20; TEMP 96.5–98.2; O2SAT 97–99
[2017-02-06] MEDS: SODIUM CHLOR 0.9% 1000 ML INJ 1,000 ML IV SCH ×2 (02:22→12:18)
[2017-02-06] MEDS: CLINDAMYCIN INJ 900 MG in SODIUM CHLORIDE 0.9% INJ 100 ML IV SCH ×2 (04:17→12:15)
[2017-02-06] MEDS: VANCOMYCIN INJ 1,000 MG in SODIUM CHLOR 0.9% 250 ML INJ 250 ML IV SCH ×2 (04:18→16:26)
[2017-02-06] MEDS: DOCUSATE SODIUM 100 MG CAP PO SCH ×2 (07:57→21:02)
[2017-02-06] MEDS: MULTIVITAMINS/MINERALS THERAPEUTIC TAB PO SCH ×2 (07:58→21:02)
[2017-02-06] MEDS: SODIUM CHLORIDE 0.9% FLUSH 10 ML FLUSH IV FLUSH SCH (07:58)
[2017-02-06] MEDS: METOPROLOL TARTRATE 50 MG TAB PO SCH ×2 (07:58→21:02)
[2017-02-06] MEDS: SODIUM CHLORIDE 0.9% FLUSH 5 ML FLUSH IVF SCH ×2 (07:59→21:00)
--- NOTE | 2017-02-06 09:02 | PD.ORT.PN ---
Subjective Subjective Remarks No c/o laying in bed Objective Vitals Vital Signs Date Time Temp Pulse Resp B/P Pulse Ox O2 Delivery O2 Flow Rate FiO2 02/06/17 06:40 62 02/06/17 05:00 58 02/06/17 04:53 61 136/81 99 02/06/17 04:00 56 02/06/17 03:52 66 02/06/17 02:00 66 02/06/17 01:00 64 02/06/17 00:00 70 02/05/17 23:00 73 02/05/17 23:00 64 145/81 99 02/05/17 22:35 96 21 02/05/17 22:00 80 02/05/17 21:00 82 02/05/17 20:00 80 02/05/17 19:00 73 02/05/17 19:00 97.8 74 145/84 96 02/05/17 18:00 70 02/05/17 17:00 74 02/05/17 15:00 97.5 79 145/88 98 02/05/17 15:00 69 02/05/17 14:00 70 02/05/17 13:00 72 02/05/17 12:00 74 02/05/17 11:00 66 02/05/17 11:00 97.4 69 159/86 98 02/05/17 10:00 72 02/05/17 09:46 90 I/O 02/05/17 02/05/17 02/05/17 02/06/17 02/06/17 02/06/17 07:00 15:00 23:00 07:00 15:00 23:00 Intake Total 480 ml 2285 ml 1240 ml Output Total 1690 ml 1400 ml 1800 ml Balance -1210 ml 885 ml -560 ml Intake Oral 480 ml 1000 ml 240 ml IV Total 1285 ml 1000 ml Output Urine Total 1650 ml 1400 ml 1800 ml Drainage Total 40 ml # Bowel Movements 1 Result Diagram: 02/05/17 0508 02/05/17 0508 Imaging Last 24 hours Impressions Knee X-Ray 02/02/17 182 Signed Impressions: Service Date/Time: Thursday, February 02, 2017 20:06 - CONCLUSION: 1. Postoperative changes as above. Normal alignment. Nikolay Dowling MD Objective Remarks Dressing C/D/I. 2+ dp, + NVI moves toes calf non-tender moderate swelling Assessment & Plan Ortho Post Op Day #: 4 Problem List: Assessment and Plan POD #4 s/p L knee Removal of TKA with ABX spacer/ABX beads, and I&D of osteomyelitis. Culx showing Staph Aureus Lovenox 50% WB with CKS I have no problems with patient being downgraded to regular floor, when ok with cardiology ID to manage ABX-> PICC line in place. d/c when arrangements made Hemant Oneil MD Feb 06, 2017 09:01
[2017-02-06] MEDS ORDERED: Vancomycin Consult Pharmacy 1 EA OTHER SCH (14:30)
--- NOTE | 2017-02-06 14:34 | HHI.FF ---
cc: Suresh Ovalle MD, Dr Infusion Therapy Location of Infusion Therapy: [facility] Infusion Therapy Order Patient Information Patient Weight 147.6 kg Diagnosis: Diagnosis Infected prosthetic knee Coded Allergies: Keflex (Verified Allergy, Severe, lips swell, 02/02/17) Lisinopril (Verified Allergy, Severe, Swelling, 02/01/17) ANGIOEDEMA Morphine (Verified Allergy, Severe, Confusion, 02/01/17) CAUSES CHEST PAIN *MDRO Multi-Drug Resistant Organism (Verified Adverse Reaction, Unknown, ) 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 Administer Medication Vancomycin 1.5 grams IV q 12 hours Start Treatment: Feb 06, 2017 Stop Treatment: Mar 18, 2017 Additional Information Venous access: PICC Line Additional Instructions [x] Peripheral flush and dressing changes per protocol [x] 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 [] May leave port accessed during therapy. [] May leave peripheral site accessed for duration of therapy. [x] If patient has SOB or respiratory distress, check oxygen saturation. If less than 90% or clinical signs of respiratory distress, administer oxygen at 2 L/min. via nasal cannula and notify physician. [x] Anaphylaxis/Reaction orders: * Stop infusion. * Keep IV line open with saline flush. * Notify physician. * Monitor vital signs every 15 minutes until symptoms resolve. * Check Oxygen saturation; Oxygen at 2 L/min. via nasal cannula if less than 90% or clinical signs of respiratory distress. * Administer diphenhydramine (Benadryl) 25 mg IV STAT, (unless patient has received as pre-med). May repeat once, if necessary. * Solu-Cortef 250 mg IVP over 30-60 seconds, use 100 mg vials for each dissolution. * Epinephrine (1mg/1 ml) 0.3 mg subcutaneously or IVP now with any signs of respiratory distress. * Check with physician for new additional pre-med orders if patient is re- challenged or re-treated. [x] May remove PICC line when treatment complete, after confirming with Physician. [x] If the patient is admitted to the hospital, the ED, or transferred via [facility] , complete transfer form including medication reconciliation order sheet. Laboratory Tests Weekly Labs: CBC w/diff, Creatinine, SED Rate, Vancomycin Trough Additional Information fu with Dr Bright in 1-2 weeks Nano Kim MD Feb 06, 2017 14:34
[2017-02-06] MEDS: ENOXAPARIN SODIUM 40 MG/0.4 ML SYRINGE SQ SCH (16:26)
--- NOTE | 2017-02-06 17:20 | HHI.PR ---
Addendum to Inpatient Note Additional Information Grew out MRSA will need to cont IV abx x 6 wks then might still require oral additional abx fu with Dr Bright after dc who is the pt's ID specialist Nano Kim MD Feb 06, 2017 17:20
[2017-02-07] MEDS ORDERED: PHARMACY ORDERED LAB ONE (04:45)
[2017-02-07 05:52] LABS: VANCOMYCIN TROUGH 5.8 MCG/ML (5.0-10.0)
[2017-02-07] MEDS: VANCOMYCIN INJ 1,000 MG in SODIUM CHLOR 0.9% 250 ML INJ 250 ML IV SCH (06:30)
[2017-02-07 08:00] VITALS: BP 157/80; PULSE 78; RESP 18; TEMP 96.1; O2SAT 98
--- NOTE | 2017-02-07 08:26 | PD.ORT.PN ---
Subjective Subjective Remarks Left knee pain but controlled with PO meds. No new complaints. 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 No new CP or SOB. No abd pain or fever. Objective Vitals Vital Signs Date Time Temp Pulse Resp B/P Pulse Ox O2 Delivery O2 Flow Rate FiO2 02/06/17 23:35 96.5 82 20 160/85 97 02/06/17 20:30 148/72 02/06/17 20:00 76 02/06/17 20:00 97.8 77 20 162/85 97 02/06/17 18:07 77 02/06/17 17:00 68 02/06/17 16:00 67 02/06/17 15:00 80 02/06/17 15:00 97.6 67 18 147/85 98 02/06/17 14:00 69 02/06/17 13:00 64 02/06/17 12:00 70 02/06/17 11:00 98.2 64 16 128/76 98 02/06/17 11:00 68 02/06/17 10:00 72 02/06/17 09:00 70 I/O 02/06/17 02/06/17 02/06/17 02/07/17 02/07/17 02/07/17 07:00 15:00 23:00 07:00 15:00 23:00 Intake Total 1240 ml 2622 ml 120 ml Output Total 1800 ml 2350 ml 800 ml Balance -560 ml 272 ml -680 ml Intake Oral 240 ml 800 ml 120 ml IV Total 1000 ml 1822 ml Output Urine Total 1800 ml 2350 ml 800 ml # Bowel Movements 0 0 Result Diagram: 02/05/17 0508 02/07/17 0347 Imaging Last 24 hours Impressions Knee X-Ray 02/02/17 1822 Signed Impressions: Service Date/Time: Thursday, February 02, 2017 20:06 - CONCLUSION: 1. Postoperative changes as above. Normal alignment. Nikolay Dowling MD Objective Remarks Laying in bed NAD VSS LLE Dressing c/d/i, mild-moderate swelling, some warmth, no new erythema +motor at, +sens, +nvi calf supple, neg homans Assessment & Plan Ortho Post Op Day #: 5 Problem List: Assessment and Plan POD #5 s/p L knee Removal of TKA with ABX spacer/ABX beads, and I&D of osteomyelitis. Ortho stable. Patient pain controlled on PO meds. Cultures showing Staph Aureus - IV abx per ID. Likely will need 6 weeks outpatient IV abx. DVT prophylaxis w Lovenox 50% WB with CKS Continue cardiac care for A-Fib Ok to d/c per ortho when stable. PICC line in place. F/U outpatient w Liz Oliveros Feb 07, 2017 08:26
[2017-02-07] MEDS: METOPROLOL TARTRATE 50 MG TAB PO SCH ×2 (08:55→21:16)
[2017-02-07] MEDS: MULTIVITAMINS/MINERALS THERAPEUTIC TAB PO SCH ×2 (08:55→21:16)
[2017-02-07] MEDS: DOCUSATE SODIUM 100 MG CAP PO SCH ×2 (08:56→21:00)
[2017-02-07] MEDS: SODIUM CHLORIDE 0.9% FLUSH 10 ML FLUSH IV FLUSH SCH (08:56)
[2017-02-07] MEDS: SODIUM CHLORIDE 0.9% FLUSH 5 ML FLUSH IVF SCH ×2 (08:57→21:00)
[2017-02-07] MEDS: SODIUM CHLOR 0.9% 1000 ML INJ 1,000 ML IV SCH ×2 (08:57→18:34)
[2017-02-07 12:00] VITALS: BP 157/78; PULSE 69; RESP 17; TEMP 97.1; O2SAT 97
[2017-02-07 16:00] VITALS: BP 142/69; PULSE 73; RESP 17; TEMP 97.7; O2SAT 97
[2017-02-07] MEDS: VANCOMYCIN 1,000 MG/NS 250 ML IV SCH ×4 (16:06→21:16)
[2017-02-07] MEDS: ACETAMINOPHEN 325 MG TAB PO PRN (16:08)
[2017-02-07] MEDS: ENOXAPARIN SODIUM 40 MG/0.4 ML SYRINGE SQ SCH (16:45)
[2017-02-07 20:00] VITALS: BP 178/81; PULSE 71; RESP 21; TEMP 97.2; O2SAT 97
[2017-02-07 23:51] VITALS: BP 131/62; PULSE 67; RESP 21; TEMP 96.6; O2SAT 98
[2017-02-08] MEDS: SODIUM CHLOR 0.9% 1000 ML INJ 1,000 ML IV SCH ×2 (06:50→18:44)
[2017-02-08] MEDS: VANCOMYCIN 1,000 MG/NS 250 ML IV SCH ×6 (06:50→22:37)
[2017-02-08 08:00] VITALS: BP 139/80; PULSE 90; RESP 17; TEMP 95.9; O2SAT 96
[2017-02-08] MEDS: SODIUM CHLORIDE 0.9% FLUSH 10 ML FLUSH IV FLUSH SCH (09:00)
[2017-02-08] MEDS: DOCUSATE SODIUM 100 MG CAP PO SCH ×3 (09:00→21:00)
[2017-02-08] MEDS: SODIUM CHLORIDE 0.9% FLUSH 5 ML FLUSH IVF SCH ×2 (09:00→21:00)
[2017-02-08] MEDS: MULTIVITAMINS/MINERALS THERAPEUTIC TAB PO SCH ×2 (09:31→22:37)
[2017-02-08] MEDS: METOPROLOL TARTRATE 50 MG TAB PO SCH ×2 (09:31→22:37)
[2017-02-08 12:00] VITALS: BP 129/67; PULSE 69; RESP 18; TEMP 97.1; O2SAT 98
--- NOTE | 2017-02-08 12:03 | PD.ORT.PN ---
Subjective Post Op Day #: 6 Subjective Remarks Patient is OOB in chair with c/o intermittent pain. Patient states he has been transferring better with less weakness and difficulty. Objective Vitals Vital Signs Date Time Temp Pulse Resp B/P Pulse Ox O2 Delivery O2 Flow Rate FiO2 02/08/17 08:00 95.9 90 17 139/80 96 02/07/17 23:51 96.6 67 21 131/62 98 02/07/17 20:00 97.2 71 21 178/81 97 02/07/17 16:00 97.7 73 17 142/69 97 02/07/17 12:00 97.1 69 17 157/78 97 I/O 02/07/17 02/07/17 02/07/17 02/08/17 02/08/17 02/08/17 07:00 15:00 23:00 07:00 15:00 23:00 Intake Total 120 ml 3872 ml 1006 ml 240 ml Output Total 800 ml 1250 ml 1950 ml 900 ml Balance -680 ml 2622 ml -944 ml -660 ml Intake Oral 120 ml 960 ml 240 ml 240 ml IV Total 2912 ml 766 ml Output Urine Total 800 ml 1250 ml 1950 ml 900 ml # Bowel Movements 0 0 0 0 Result Diagram: 02/05/17 0508 02/07/17 0347 Imaging Last 24 hours Impressions Knee X-Ray 02/02/17 1822 Signed Impressions: Service Date/Time: Thursday, February 02, 2017 20:06 - CONCLUSION: 1. Postoperative changes as above. Normal alignment. Nikolay Dowling MD Objective Remarks OOB in chair NAD VSS LLE Dressing c/d/i, mild-moderate swelling, some warmth, no new erythema, small effusion +motor at, +sens, +nvi calf supple, neg homans CKS in place Assessment & Plan Ortho Post Op Day #: 6 Problem List: Assessment and Plan POD #6 s/p L knee Removal of TKA with ABX spacer/ABX beads, and I&D of osteomyelitis. Ortho stable. Patient pain controlled on PO meds. Cultures showing MRSA - IV abx per ID. Likely will need 6 weeks outpatient IV abx. DVT prophylaxis w Lovenox 50% WB with CKS Ok to d/c per ortho when stable. PICC line in place. F/U outpatient w Dr. Kebede Plan is for discharge to SNF ([facility]) today or tomorrow). Jeremiah Younger Feb 08, 2017 12:03
[2017-02-08] MEDS ORDERED: PHARMACY ORDERED LAB ONE (13:45)
[2017-02-08 16:00] VITALS: BP 148/81; PULSE 80; RESP 19; TEMP 98.7; O2SAT 97
--- NOTE | 2017-02-08 16:18 | HHI.IDPN ---
Subjective Subjective Remarks pt is doing OK no co Antibiotics vanco Allergies: Coded Allergies: Keflex (Verified Allergy, Severe, lips swell, 02/02/17) Lisinopril (Verified Allergy, Severe, Swelling, 02/01/17) ANGIOEDEMA Morphine (Verified Allergy, Severe, Confusion, 02/01/17) CAUSES CHEST PAIN *MDRO Multi-Drug Resistant Organism (Verified Adverse Reaction, Unknown, ) 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 Objective . Vital Signs Date Time Temp Pulse Resp B/P Pulse Ox O2 Delivery O2 Flow Rate FiO2 02/08/17 12:00 97.1 69 18 129/67 98 02/08/17 08:00 95.9 90 17 139/80 96 02/07/17 23:51 96.6 67 21 131/62 98 02/07/17 20:00 97.2 71 21 178/81 97 02/07/17 02/07/17 02/08/17 15:00 23:00 07:00 Intake Total 3872 ml 1006 ml 240 ml Output Total 1250 ml 1950 ml 900 ml Balance 2622 ml -944 ml -660 ml Intake Oral 960 ml 240 ml 240 ml IV Total 2912 ml 766 ml Output Urine Total 1250 ml 1950 ml 900 ml # Bowel Movements 0 0 0 . Laboratory Tests Test 02/07/17 03:47 Creatinine 0.95 MG/DL Estimat Glomerular Filtration 81 ML/MIN Rate Physical Exam NAD L knee: mitchell in; well approximated Assessment & Plan Remarks cont IV abx x 6 wks - OPAT filled out - fu labs, vanco trough ESR then might still require oral additional abx fu with Dr Bright after dc who is the pt's ID specialist Nano Kim MD Feb 08, 2017 16:18
[2017-02-08] MEDS: ENOXAPARIN SODIUM 40 MG/0.4 ML SYRINGE SQ SCH (18:44)
[2017-02-08 20:00] VITALS: BP 138/72; PULSE 84; RESP 20; TEMP 96; O2SAT 94
[2017-02-08] MEDS: ACETAMINOPHEN 325 MG TAB PO PRN (22:39)
[2017-02-09] VITALS: BP 134/71; PULSE 67; RESP 19; TEMP 96.9; O2SAT 98
[2017-02-09] MEDS: SODIUM CHLOR 0.9% 1000 ML INJ 1,000 ML IV SCH ×3 (00:22→17:27)
[2017-02-09] MEDS: VANCOMYCIN 1,000 MG/NS 250 ML IV SCH ×6 (05:40→22:39)
[2017-02-09 08:00] VITALS: BP 155/87; PULSE 75; RESP 16; TEMP 96; O2SAT 98
[2017-02-09] MEDS: DOCUSATE SODIUM 100 MG CAP PO SCH ×2 (09:00→21:00)
[2017-02-09] MEDS: SODIUM CHLORIDE 0.9% FLUSH 5 ML FLUSH IVF SCH ×2 (09:00→21:00)
[2017-02-09] MEDS: SODIUM CHLORIDE 0.9% FLUSH 10 ML FLUSH IV FLUSH SCH (09:00)
[2017-02-09] MEDS: MULTIVITAMINS/MINERALS THERAPEUTIC TAB PO SCH ×2 (10:08→22:38)
[2017-02-09] MEDS: METOPROLOL TARTRATE 50 MG TAB PO SCH ×2 (10:08→22:38)
[2017-02-09 12:00] VITALS: BP 137/66; PULSE 84; RESP 17; TEMP 95.6; O2SAT 97
--- NOTE | 2017-02-09 15:45 | PD.ORT.PN ---
Subjective Post Op Day #: 7 Subjective Remarks Patient is resting in bed and states his pain is better today. Primary RN reports some moderate serosanguineous drainage last night from the left drain sight. Patient denies drainage from the incision. Objective Vitals Vital Signs Date Time Temp Pulse Resp B/P Pulse Ox O2 Delivery O2 Flow Rate FiO2 02/09/17 12:00 95.6 84 17 137/66 97 02/09/17 08:00 96.0 75 16 155/87 98 02/09/17 00:00 96.9 67 19 134/71 98 02/08/17 20:00 96.0 84 20 138/72 94 02/08/17 16:00 98.7 80 19 148/81 97 I/O 02/08/17 02/08/17 02/08/17 02/09/17 02/09/17 02/09/17 07:00 15:00 23:00 07:00 15:00 23:00 Intake Total 240 ml 1221 ml 1171 ml 1009 ml 1402 ml Output Total 900 ml 900 ml 800 ml 700 ml 1125 ml Balance -660 ml 321 ml 371 ml 309 ml 277 ml Intake Oral 240 ml 400 ml 240 ml 240 ml 400 ml IV Total 821 ml 931 ml 769 ml 1002 ml Output Urine Total 900 ml 900 ml 800 ml 700 ml 1125 ml # Voids 1 # Bowel Movements 0 1 0 0 1 Result Diagram: 02/05/17 0508 02/09/17 0554 Imaging Last 24 hours Impressions Knee X-Ray 02/02/17 1822 Signed Impressions: Service Date/Time: Thursday, February 02, 2017 20:06 - CONCLUSION: 1. Postoperative changes as above. Normal alignment. Nikolay Dowling MD Objective Remarks Patient resting comfortably in bed in NAD. VSS LLE Dressing c/d/i, mild swelling, mild warmth, no new erythema, no effusion +motor at, +sens, +nvi calf supple, neg homans CKS in place Assessment & Plan Ortho Post Op Day #: 7 Problem List: Assessment and Plan POD # s/p L knee Removal of TKA with ABX spacer/ABX beads, and I&D of osteomyelitis. Ortho stable. Patient pain controlled on PO meds. Cultures showing MRSA - IV abx per ID. Likely will need 6 weeks outpatient IV abx. DVT prophylaxis w Lovenox 50% WB with CKS Ok to d/c per ortho when stable. PICC line in place. F/U outpatient w Dr. Kebede Plan is for discharge to SNF ([facility]) today or tomorrow. Reinforce drain site with xeroform, 4x4, and normal dressings. Jeremiah Younger Feb 09, 2017 15:45
[2017-02-09 16:00] VITALS: BP 158/82; PULSE 94; RESP 18; TEMP 96.3; O2SAT 95
[2017-02-09] MEDS: ENOXAPARIN SODIUM 40 MG/0.4 ML SYRINGE SQ SCH (17:27)
[2017-02-09 20:00] VITALS: BP 159/81; PULSE 92; RESP 18; TEMP 97.3; O2SAT 96
[2017-02-10] VITALS: BP 131/89; PULSE 100; RESP 18; TEMP 97.6; O2SAT 97
[2017-02-10] MEDS ORDERED: PHARMACY ORDERED LAB ONE (05:45)
[2017-02-10 06:16] LABS: VANCOMYCIN TROUGH 17.2 MCG/ML (5.0-10.0)
[2017-02-10] MEDS: VANCOMYCIN 1,000 MG/NS 250 ML IV SCH ×2 (06:19)
[2017-02-10] MEDS: SODIUM CHLOR 0.9% 1000 ML INJ 1,000 ML IV SCH (06:22)
[2017-02-10 08:00] VITALS: BP 124/63; PULSE 85; RESP 16; TEMP 96.6; O2SAT 97
[2017-02-10] MEDS: SODIUM CHLORIDE 0.9% FLUSH 10 ML FLUSH IV FLUSH SCH (08:34)
[2017-02-10] MEDS: DOCUSATE SODIUM 100 MG CAP PO SCH (08:35)
[2017-02-10] MEDS: METOPROLOL TARTRATE 50 MG TAB PO SCH (08:35)
[2017-02-10] MEDS: SODIUM CHLORIDE 0.9% FLUSH 5 ML FLUSH IVF SCH (08:35)
[2017-02-10] MEDS: MULTIVITAMINS/MINERALS THERAPEUTIC TAB PO SCH (08:36)
--- NOTE | 2017-02-10 11:01 | HHI.DS ---
Discharge Summary Admission Date Feb 02, 2017 at 11:35 Discharge Date: Feb 10, 2017 Admitting Diagnosis infection of total left knee replacement Diagnosis: (1) Infection of total left knee replacement Diagnosis: Principal Procedures Removal of left TKA with I&D and placement of antibiotic spacer and beads. Brief History This is a 61 year old male patient with an infection to the left TKA CBC/BMP: 02/10/17 0540 Significant Findings Laboratory Tests Test 02/08/17 02/09/17 02/10/17 14:16 05:54 05:40 Vancomycin Level Trough 14.2 MCG/ML 17.2 MCG/ML (5.0-10.0) (5.0-10.0) Estimat Glomerular Filtration 77 ML/MIN (>89) 76 ML/MIN (>89) Rate PE at Discharge Patient resting comfortably in bed in NAD. VSS LLE Dressing c/d/i, mild swelling, mild warmth, no new erythema, no effusion +motor at, +sens, +nvi calf supple, neg homans CKS in place Hospital Course The patient was admitted with positive infection to the left TKA. The patient had surgery to remove infected hardware, with irrigation and debridement of tissue. An antibiotic spacer was placed with antibiotic beads. Intraoperative cultures were taken which were positive for MRSA. The patient had a picc line placed and received iv ABX. The patient is 50% WB on the left leg with the use of a knee immobilizer. The patient was discharged to a SNF and will f/u with Dr. Kebede in 1-2 weeks. The patient will require further surgery to have a revision TKA once infection has been cleared up. Pt Condition on Discharge: Stable Discharge Disposition: Discharge to SNF Discharge Instructions Diet Instructions: As Tolerated, No Restrictions Activities You Can Perform: Partial Weight Bearing Activities to Avoid: Strenuous Activity Additional Activity Instruc.: 50% WB on LLE Follow up Referrals: Orthopedics with Nnamdi Kebede MD New Medications: Aspirin (Aspirin) 325 Mg Tab 325 MG PO DAILY Start Aspirin after Lovenox is completed. Prevent Blood Clot # 30 Ref 0 TAB Commode 3-in-1 (Commode 3-in-1) 1 Mis Mis 1 EA .ROUTE DIRECTED #1 Ref 0 EA Enoxaparin Inj (Lovenox Inj) 40 Mg/0.4 Ml Syr 40 MG SQ DAILY Start Aspirin after Lovenox is completed. Blood Clot Prevention # 20 Ref 0 SYRINGE Hydrocodone-Acetaminophen ([place]) 5-325 mg Tab 1-2 TAB PO Q4H PRN PAIN #60 Ref 0 TAB Walker with Front Wheels (Walker with Front Wheels) 1 Mis Mis 1 EA .ROUTE DIRECTED #1 Ref 0 EA Continued Medications: Atorvastatin (Atorvastatin) 40 Mg Tab 40 MG PO HS Cholesterol Management #30 Ref 0 TAB Metoprolol Tartrate (Metoprolol Tartrate) 50 Mg Tab 50 MG PO BID #60 Ref 0 TAB Jeremiah Younger Feb 10, 2017 11:01
[2017-02-10 12:00] VITALS: BP 126/65; PULSE 78; RESP 20; TEMP 97.9; O2SAT 98
[2017-02-10] MEDS ORDERED: VANCOMYCIN INJ 1,750 MG in SODIUM CHLORID 0.9% 500 ML INJ 500 ML IV SCH (14:00)
[2017-02-12] MEDS ORDERED: PHARMACY ORDERED LAB ONE (01:45)
== END 2017-02-10 13:18 | DRG 464 ==
LOC: HSDI 02-02 11:35 → HCIS 02-02 23:40 → N07A 02-06 22:45
PROVIDERS: ADMIT Orthopaedic Surgery; ATTEND Orthopaedic Surgery
PROC: 0QC Lower Bones, Extirpation (ICD-10-PCS; 2017-02-02)
PROC: 3E0U029 Introduction of Other Anti-infective into Joints, Open Approach (ICD-10-PCS; 2017-02-02)
PROC: 0SPU0JZ Removal of Synthetic Substitute from Left Knee Joint, Femoral Surface, Open Approach (ICD-10-PCS; principal; 2017-02-02 15:21)
PROC: 05HN33Z Insertion of Infusion Device into Left Internal Jugular Vein, Percutaneous Approach (ICD-10-PCS; 2017-02-04)
DX: T84.54XA Infection and inflammatory reaction due to internal left knee prosthesis, initial encounter (principal); M00.9 Pyogenic arthritis, unspecified; M86.9 Osteomyelitis, unspecified; T78.3XXA Angioneurotic edema, initial encounter; I10 Essential (primary) hypertension; I97.89 Other postprocedural complications and disorders of the circulatory system, not elsewhere classified; B95.62 Methicillin resistant Staphylococcus aureus infection as the cause of diseases classified elsewhere; Y83.8 Other surgical procedures as the cause of abnormal reaction of the patient, or of later complication, without mention of misadventure at the time of the procedure; E78.5 Hyperlipidemia, unspecified; G47.30 Sleep apnea, unspecified; M19.90 Unspecified osteoarthritis, unspecified site; Z79.01 Long term (current) use of anticoagulants; I48.91 Unspecified atrial fibrillation
CPT/HCPCS: 36569; 71010; 73560; 76937; 80048; 80202; 82565; 85025; 85027; 86140; 86403; 87015; 87070; 87102; 87116; 87147; 87186; 87205; 87206; 94150; C1713; C1776; C9290; J0131; J0282; J1100; J1170; J1580; J1642; J1650; J2250; J2370; J2405; J2710; J3010; J3260; J3370; J7030; J7050; J7120; J8501; L1830

== ENCOUNTER → 2017-02-01 | Outpatient (CLI) | payer OTHER ==
[~2017-02-01] MED LIST: ASPI325T PO; ATOR40TA16 PO; COMMODE 3-IN-11 MIS; ENOX40P SQ; METO-426 PO; METO50TA PO; NORC5TAB PO; WALKER WHEELS/F1 MIS
[2017-02-01 13:58] LABS: AUTOMATED NEUTROPHIL # 6.9 TH/MM3 (1.8-7.7); BASOPHIL # 0.1 TH/MM3 (0-0.2); BASOPHIL % 0.7 % (0.0-2.0); EOSINOPHIL # 0.2 TH/MM3 (0-0.4); EOSINOPHIL % 1.9 % (0.0-4.0); HEMATOCRIT 39.8 % (39.0-51.0); HEMO FLAGS DIFF FINAL; LYMPH % 21.4 % (9.0-44.0); LYMPHOCYTE # 2.3 TH/MM3 (1.0-4.8); MEAN CELL VOLUME 84.7 FL (80.0-100.0); MEAN CORPUSCULAR HEMOGLOBIN 28.9 PG (27.0-34.0); MEAN CORPUSCULAR HGB CONC 34.1 % (32.0-36.0); MONO % 10.7 % (0.0-8.0); NEUT % 65.3 % (16.0-70.0); PLATELET COUNT 449 TH/MM3 (150-450); WHITE BLOOD COUNT 10.5 TH/MM3 (4.0-11.0)
[2017-02-01 14:06] LABS: APTT (PATIENT) 29.6 SEC (24.3-30.1); PROTHROMBIN TIME - PATIENT 11.1 SEC (9.8-11.6)
[2017-02-01 14:10] LABS: BLOOD, URINE SMALL (NEG); CALCIUM OXALATE CRYSTALS,URINE OCC /hpf; COMMENT (UR) CULT NOT INDICATED; CULTURE IF INDICATED CULT NOT INDICATED; GLUCOSE,URINE NEG (NEG); KETONE, URINE NEG (NEG); MUCUS URINE FEW /lpf (OCC); NITRITE,URINE NEG (NEG); SQUAMOUS EPITHELIAL CELL URINE <1 /hpf (0-5); URINE COLOR YELLOW (YELLW/STRAW)
[2017-02-01 14:20] LABS: ALT (GPT) 21 U/L (12-78); ANION GAP 7 MEQ/L (5-15); AST (GOT) 12 U/L (15-37); BICARBONATE 26.2 MEQ/L (21.0-32.0); BLOOD UREA NITROGEN 16 MG/DL (7-18); CHLORIDE 105 MEQ/L (98-107); GLOMERULAR FILTRATION RATE 78 ML/MIN (>89); GLUCOSE,FASTING 93 MG/DL (74-99); POTASSIUM 4.4 MEQ/L (3.5-5.1); SODIUM (NA) 138 MEQ/L (136-145)
[2017-02-01 14:22] LABS: ALKALINE PHOSPHATASE 100 U/L (45-117); TOTAL BILIRUBIN ADULT 0.4 MG/DL (0.2-1.0); WESTERGREN SEDIMENTATION RATE 17 mm/hr (0-20)
--- NOTE | 2017-02-01 14:49 | RADRPT ---
EXAM DATE/TIME: 02/01/2017 14:34 [facility] COMPARISON: No previous studies available for comparison. INDICATIONS : Evaluate for pneumonia, pneumothorax or communicable disease. Pre op knee surgery. MEDICAL HISTORY : None. SURGICAL HISTORY : heart ablasions. ENCOUNTER: Initial ACUITY: 1 day PAIN SCORE: 0/10 LOCATION: Bilateral chest FINDINGS: The lungs are clear without infiltrate, nodule, or mass. There is no appreciable pleural effusion fo r technique. Heart and mediastinum are unremarkable. There are degenerative changes in the thoracic spine with hypertrophic changes. IMPRESSION: No acute cardiopulmonary disease. Yeimi Jiang MD on February 01, 2017 at 14:46 Board Certified Radiologist. This report was verified electronically.
--- NOTE | 2017-02-01 18:06 | EKG ---
Date Performed: 02/01/2017 Time Performed: 13:40:39 PTAGE: 61 years EKG: Sinus rhythm RIGHT BUNDLE BRANCH BLOCK ABNORMAL ECG NO PREVIOUS TRACING DOCTOR: Bryan Beavers Interpretating Date/Time 02/01/2017 18:04:59
== END ==
LOC: CPRE 13:12
PROVIDERS: ATTEND Orthopaedic Surgery
DX: Z01.810 Encounter for preprocedural cardiovascular examination (principal); Z01.811 Encounter for preprocedural respiratory examination; Z01.812 Encounter for preprocedural laboratory examination; M79.609 Pain in unspecified limb; Z96.60 Presence of unspecified orthopedic joint implant; M25.50 Pain in unspecified joint; T84.59XD Infection and inflammatory reaction due to other internal joint prosthesis, subsequent encounter; R94.31 Abnormal electrocardiogram [ECG] [EKG]
CPT/HCPCS: 36415; 71020; 80053; 81001; 85025; 85610; 85652; 85730; 86140; 93005

== ENCOUNTER 2017-03-23 13:00 | Inpatient (IN) | payer OTHER ==
[~2017-03-23] VITALS: Ht 185.4 cm; Wt 168.0 kg
[~2017-03-23 13:00] MED LIST changes: -COMMODE 3-IN-11 MIS; -ENOX40P SQ; -METO-426 PO; -METO50TA PO; -NORC5TAB PO; -WALKER WHEELS/F1 MIS
[2017-05-10] MEDS ORDERED: METO-426 PO (13:40)
[2017-05-10] MEDS ORDERED: COZA25TA PO (13:41)
[2017-05-12] MEDS ORDERED: CHLORHEXIDINE GLUCONATE 2 % 1 PACK (2 CLOTHS) TOPICAL PRN (09:00)
[2017-05-12] MEDS ORDERED: METOPROLOL TARTRATE 25 MG TAB PO PRN (09:00)
[2017-05-12] MEDS ORDERED: SODIUM CHLORID 0.9% 500 ML IV PRN (09:00)
[2017-05-12] MEDS ORDERED: ceFAZolin 2 GM PREMIX 50 ML IV SCH (09:00)
[2017-05-12] MEDS ORDERED: VANCOMYCIN 1000 MG/NS 250 ML (for <70 kg) IV SCH ×2 (09:00)
[2017-05-12] MEDS ORDERED: LACTATED RINGER'S 1000 ML IV PRN (09:00)
[2017-05-12] MEDS ORDERED: POVIDONE IODINE 5% (ANTISEPSIS KIT) 4 APPLICATIONS EACH NARE PRN (09:00)
[2017-05-12] MEDS ORDERED: INSULIN HUMAN REGULAR 1,000 UNITS/10 ML VIAL SQ PRN (09:00)
[2017-05-12] MEDS ORDERED: POVIDONE IODINE 7.5% SCRUB 118 ML BOTTLE TOPICAL SCH (09:00)
[2017-05-12 09:18] VITALS: BP 173/105; PULSE 56; RESP 16; TEMP 97.8; O2SAT 99
[2017-05-12] MEDS ORDERED: DEXAMETHASONE SOD PHOS 20 MG/5 ML VIAL ONE (09:51)
[2017-05-12] MEDS ORDERED: ROPIVACAINE PERI-ARTICULAR INJECTION. P-ARTICULR SCH ×5 (10:00)
[2017-05-12] MEDS ORDERED: TRANEXAMIC ACID IV SCH ×2 (10:00→14:42)
[2017-05-12] MEDS ORDERED: SODIUM CHLORIDE 0.9% IV SCH ×2 (10:00→14:42)
[2017-05-12] MEDS ORDERED: FAMOTIDINE 20 MG/2 ML VIAL ONE (11:05)
[2017-05-12] MEDS ORDERED: MIDAZOLAM HCL 2 MG/2 ML VIAL ONE (11:06)
[2017-05-12] MEDS ORDERED: GENTAMICIN SULFATE 80 MG/2 ML VIAL ONE (11:06)
[2017-05-12] MEDS ORDERED: ceFAZolin INJ 1,000 MG VIAL ONE (14:13)
[2017-05-12] MEDS ORDERED: PROPOFOL 200 MG/20 ML AMP IV ONE (15:11)
[2017-05-12] MEDS ORDERED: LACTATED RINGER'S 1000 ML INJ 1,000 ML IV ONE (15:11)
[2017-05-12] MEDS ORDERED: ONDANSETRON HCL 4 MG/2 ML VIAL IV PUSH ONE (15:11)
[2017-05-12] MEDS ORDERED: SODIUM CHLORIDE 0.9% FLUSH 5 ML FLUSH IVF PRN (15:30)
[2017-05-12] MEDS ORDERED: ENOX40P SQ (15:30)
[2017-05-12] MEDS ORDERED: BISACODYL 10 MG SUPP RECTAL PRN (15:30)
[2017-05-12] MEDS ORDERED: NORC5TAB PO (15:30)
[2017-05-12] MEDS ORDERED: ALUMINUM/MAGNESIUM/SIMETH 30 ML CUP PO PRN (15:30)
[2017-05-12] MEDS ORDERED: ONDANSETRON HCL 4 MG/2 ML VIAL IVP PRN (15:30)
[2017-05-12] MEDS ORDERED: ASPI325T PO (15:30)
[2017-05-12] MEDS ORDERED: MORPHINE SULFATE 4 MG/ML INJ IV PUSH PRN (15:30)
[2017-05-12] MEDS ORDERED: ZOLPIDEM TARTRATE 5 MG TAB PO PRN (15:30)
[2017-05-12] MEDS ORDERED: diphenhydrAMINE HCL 50 MG/ML VIAL IV PRN (15:30)
[2017-05-12] MEDS ORDERED: ACETAMINOPHEN/HYDROcodone 325 MG/5 MG TAB PO PRN ×2 (15:30)
[2017-05-12] MEDS ORDERED: NALOXONE HCL 0.4 MG/ML AMP IV PRN (15:30)
[2017-05-12] MEDS ORDERED: HYDROmorphone HCL PF 1 MG/ML VIAL IV PRN (15:30)
[2017-05-12] MEDS ORDERED: Post-op Orders (for Pharmacy) MISC XX ONE (15:30)
[2017-05-12] MEDS ORDERED: DO NOT ADM ANY ANTICOAGULANT DRUGS PRN (15:47)
[2017-05-12] MEDS ORDERED: *HYDROmorphone PF 1 MG VIAL PERIprocedural Use ONLY ONE (15:52)
[2017-05-12] MEDS ORDERED: fentaNYL CITRATE 250 MCG/5 ML AMP ONE ×2 (15:59)
--- NOTE | 2017-05-12 16:00 | HHI.DCPOC ---
Discharge Care Plan Diagnosis: (1) Infection of total left knee replacement (2) Status post revision of total knee Your Health Problems Are: Difficulty with ADL Goals to Promote Your Health * To prevent worsening of your condition and complications * To maintain your health at the optimal level Directions to Meet Your Goals Take your medications as prescribed Follow your dietary instruction Follow activity as directed Keep your appointments as scheduled Take your immunizations and boosters as scheduled If your symptoms worsen call your PCP, if no PCP go to Urgent Care Center or Emergency Room Smoking is Dangerous to Your Health. Avoid second hand smoke Call the 24-hour hour crisis hotline for domestic abuse at Jeremiah Younger May 12, 2017 16:00
--- NOTE | 2017-05-12 16:02 | HHI.FF ---
Face to Face Verification Diagnosis: (1) Infection of total left knee replacement (2) Status post revision of total knee Physical Therapy Gait training, Transfer training, bed to chair Knee: Total knee Left LE Weight Bearing: WB as tolerated Left LE Range of Motion: Active ROM Nursing Nursing: Arleen teaching, Dressing changes Dressing Changes: Daily dressing change I have seen patient Estevan Stafford on 05/12/17. My clinical findings support the need for the requested home health care services because: Limited ability to care for self High risk of falls I certify that my clinical findings support that this patient is homebound because: Post-op weakness Unsteady gait/balance Jeremiah Younger May 12, 2017 16:02
[2017-05-12] MEDS ORDERED: WALKER WHEELS/F1 MIS (16:03)
[2017-05-12] MEDS ORDERED: CPMMACHINE (16:03)
[2017-05-12] MEDS ORDERED: COMMODE 3-IN-11 MIS (16:03)
--- NOTE | 2017-05-12 17:50 | PD.CONS ---
HPI Service [facility] Consult Requested By Reason for Consult medical management Primary Care Physician Kings Sabillon, Diagnoses: History of Present Illness patient is a 62 y/o male with history of hypertension, atrial fibrillation, osteoarthritis- s/p left total knee replacement who underwent revision of the left TKA today. at the time of my evaluation he was resting comfortably with no distress. pain was minimal to mild at the time.he denies any chest pain, palpitation, sob, dizziness or nausea. Review of Systems Constitutional: DENIES: Fever, Weight loss, Chills, Night Sweats Eyes: DENIES: Blurred vision, Diplopia, Vision loss, Double Vision Ears, nose, mouth, throat: DENIES: Tinnitus, Vertigo, Throat pain, Epistaxis Respiratory: DENIES: Apneas, Cough, Snoring, Wheezing, Hemoptysis, Sputum production, Shortness of breath Cardiovascular: DENIES: Chest pain, Palpitations, Syncope, Dyspnea on Exertion , PND, Lower Extremity Edema, Orthopnea, Claudication Gastrointestinal: DENIES: Abdominal pain, Black stools, Bloody stools, Constipation, Diarrhea, Nausea, Vomiting, Difficulty Swallowing, Anorexia Genitourinary: DENIES: Urinary frequency, Urgency, Hematuria, Dysuria Musculoskeletal: COMPLAINS OF: Joint pain (left knee), DENIES: Muscle aches, Stiffness, Joint Swelling Integumentary: DENIES: Rash Neurologic: DENIES: Abnormal gait, Headache, Localized weakness, Paresthesias, Seizures, Speech Problems, Tremor, Poor Balance Psychiatric: DENIES: Anxiety, Confusion, Mood changes, Depression, Hallucinations, Agitation, Suicidal Ideation, Homicidal Ideation, Delusions Past Family Social History Allergies: Coded Allergies: Keflex (Verified Allergy, Severe, lips swell, 05/12/17) Lisinopril (Verified Allergy, Severe, Swelling, 05/12/17) ANGIOEDEMA Morphine (Verified Allergy, Severe, Confusion, 05/12/17) CAUSES CHEST PAIN *MDRO Multi-Drug Resistant Organism (Verified Adverse Reaction, Unknown, ) 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 Past Medical History hypertension atrial fibrillation osteoarthritis Past Surgical History knee replacement ablation of the a-fib Reported Medications metoprolol losartan aspirin Active Ordered Medications Current Medications Lactated Ringer's 1,000 ml @ 30 mls/hr Q24H PRN IV SEE LABEL COMMENTS Last administered on 05/12/17 09:00; Start 05/12/17 at 09:00; Stop 05/12/17 at 17:14 ; Status DC Sodium Chloride (NS 500 ml Inj) 500 ml @ 30 mls/hr [id number] PRN IV SEE LABEL COMMENTS; Start 05/12/17 at 09:00; Stop 05/12/17 at 17:14; Status DC Metoprolol Tartrate (Lopressor) 25 mg [employer]IRT [employer] PRN PO SEE LABEL COMMENTS; Start 05/12/17 at 09:00; Stop 05/12/17 at 17:14; Status DC Povidone Iodine (Betadine 5% Antisepsis Kit) 1 applic [employer] PRN EACH NARE SEE LABEL COMMENTS Last administered on 05/12/17 09:00; Start 05/12/17 at 09:00 ; Stop 05/12/17 at 17:14; Status DC Chlorhexidine Gluconate (Chlorhexidine 2% Cloth) 3 pack [employer] PRN TOPICAL SEE LABEL COMMENTS Last administered on 05/12/17 08:30; Start 05/12/17 at 09:00 ; Stop 05/12/17 at 17:14; Status DC Insulin Human Regular (NovoLIN R INJ) See Protocol Table ... [employer] PRN SQ SEE PROTOCOL TABLE; Start 05/12/17 at 09:00; Stop 05/12/17 at 17:14; Status DC Povidone Iodine 1 applic 1 applic ONCE TOPICAL Last administered on 05/12/17 08:30; Start 05/12/17 at 09:00; Stop 05/12/17 at 17:14; Status DC Cefazolin Sodium/ Dextrose 50 ml @ 100 mls/hr [employer] IV Last administered on 05/12/17 10:16; Start 05/12/17 at 09:00; Stop 05/12/17 at 17:14; Status DC Vancomycin HCl 1000 mg/Sodium Chloride 250 ml @ 250 mls/hr [employer] IV Last administered on 05/12/17 10:16; Start 05/12/17 at 09:00; Stop 05/12/17 at 17:14 ; Status DC Tranexamic Acid 1538 mg/Sodium Chloride 115.38 ml @ 200 mls/ hr ONCE IV Last administered on 05/12/17 11:42; Start 05/12/17 at 10:00; Stop 05/12/17 at 17:14 ; Status DC Ropivacaine/ Ketorolac Tromethamine/ Epinephrine HCl/ Clonidine/Sodium Chloride (Naropin 0.5% Pf Inj/Toradol Inj/ Adrenalin (1:1000) Inj/ Duraclon Inj/NS Inj) 100 ml @ 200 mls/hr ONCE P-ARTICULR Last administered on 05/12/17 12:25; Start 05/12/17 at 10:00; Stop 05/12/17 at 17:14; Status DC Dexamethasone Sodium Phosphate (Decadron Inj) 20 mg STK-MED ONCE .ROUTE Last administered on 05/12/17 10:00; Start 05/12/17 at 09:51; Stop 05/12/17 at 09:52 ; Status DC Famotidine (Pepcid Inj) 20 mg STK-MED ONCE .ROUTE ; Start 05/12/17 at 11:05; Stop 05/12/17 at 11:06; Status DC Midazolam HCl (Versed Inj) 2 mg STK-MED ONCE .ROUTE ; Start 05/12/17 at 11:06; Stop 05/12/17 at 11:07; Status DC Gentamicin Sulfate (Gentamicin Inj) 240 mg STK-MED ONCE .ROUTE Last administered on 05/12/17 12:25; Start 05/12/17 at 11:06; Stop 05/12/17 at 11:07 ; Status DC Cefazolin Sodium (Ancef Inj) 2,000 mg STK-MED ONCE .ROUTE Last administered on 05/12/17 14:14; Start 05/12/17 at 14:13; Stop 05/12/17 at 14:14; Status DC Atorvastatin Calcium (Lipitor) 40 mg HS PO ; Start 05/12/17 at 21:00 Losartan Potassium (Cozaar) 25 mg BID PO ; Start 05/12/17 at 21:00 Metoprolol Tartrate 75 mg 75 mg BID PO ; Start 05/12/17 at 21:00 Sodium Chloride (NS 1000 ml Inj) 1,000 ml @ 100 mls/hr Q10H IV ; Start at 17:00 IV Flush (NS Flush) 2 ml UNSCH PRN IVF FLUSH AFTER USING IV ACCESS; Start 05/12 at 15:30 IV Flush 2 ml 2 ml BID IVF ; Start 05/12/17 at 21:00 Vancomycin HCl/ Sodium Chloride (Vancomycin Inj/ NS 250 ml Inj) 250 ml @ 250 mls/hr Q12H IV ; Start 05/13/17 at 22:00; Stop 05/15/17 at 21:59 Miscellaneous Information (Post-op Orders (for Pharmacy)) STAT ONCE XX ; Start 05/12/17 at 15:30; Stop 05/12/17 at 17:21; Status DC Dexamethasone Sodium Phosphate (Decadron Inj) 10 mg ONCE ONCE IV ; Start at 07:45; Stop 05/13/17 at 07:46 Enoxaparin Sodium (Lovenox Inj) 40 mg Q24H SQ ; Start 05/13/17 at 14:47; Stop at 14:48 Acetaminophen/ Hydrocodone Bitart ([place] 5-325 Mg) 1 tab Q4H PRN PO PAIN LESS THAN 5 ON SCALE; Start 05/12/17 at 15:30 Acetaminophen/ Hydrocodone Bitart 2 tab 2 tab Q4H PRN PO PAIN SCALE 5 TO 10; Start 05/12/17 at 15:30 Tranexamic Acid/ Sodium Chloride (Cyklokapron Inj/ NS Inj) 115.38 ml @ 200 mls / hr [employer] IV Last administered on 05/12/17t 16:20; Start 05/12/17 at 14:42 ; Stop 05/12/17 at 20:00 Multivitamins/ Minerals Therapeutic (Theragran M Tab) 1 tab BID PO ; Start 05/13 at 21:00; Stop 07/12/17 at 20:59 Ondansetron HCl (Zofran Inj) 4 mg Q6H PRN IVP NAUSEA OR VOMITING; Start at 15:30 Docusate Sodium (Colace) 100 mg BID PO ; Start 05/13/17 at 21:00 Al Hydrox/Mg Hydrox/Simethicone (Mag-Al Plus Susp Liq) 30 ml Q6H PRN PO INDIGESTION; Start 05/12/17 at 15:30 Zolpidem Tartrate (Ambien) 5 mg HS PRN PO SLEEP; Start 05/12/17 at 15:30 Bisacodyl (Dulcolax Supp) 10 mg DAILY PRN RECTAL CONSTIPATION; Start 05/12/17 at 15:30 Magnesium Hydroxide (Milk Of Magnesia Liq) 30 ml DAILY PRN PO CONSTIPATION; Start 05/12/17 at 15:30 Naloxone HCl (Narcan Inj) 0.4 mg UNSCH PRN IV RESPIRATORY RATE LESS THAN 10; Start 05/12/17 at 15:30 Diphenhydramine HCl (Benadryl Inj) 25 mg Q6H PRN IV ITCHING; Start 05/12/17 at 15:30 Morphine Sulfate (Morphine Inj) 2 mg Q3H PRN IV PUSH pain greater than 5; Start 05/12/17 at 15:30; Stop 05/12/17 at 15:30; Status DC Hydromorphone HCl (Dilaudid Pf Inj) 1 mg Q3H PRN IV PAIN SCALE 6 TO 10; Start 05/12/17 at 15:30 Hydromorphone HCl (*DILAUDID PF INJ PERIprocedural ONLY) 1 mg STK-MED ONCE .ROUTE Last administered on 05/12/17t 15:54; Start 05/12/17 at 15:52; Stop at 15:53; Status DC Fentanyl Citrate (fentaNYL INJ) 250 mcg STK-MED ONCE .ROUTE ; Start 05/12/17 at 15:59; Stop 05/12/17 at 16:00; Status DC Fentanyl Citrate (fentaNYL INJ) 250 mcg STK-MED ONCE .ROUTE ; Start 05/12/17 at 15:59; Stop 05/12/17 at 16:00; Status DC Miscellaneous Information ALL NURSING DEPARTME... UNSCH PRN .XX SEE LABEL COMMENTS; Start 05/12/17 at 15:47; Stop 05/13/17 at 15:46 Family History not relevant to this consult. Social History no smoking. drinks occasionally. Physical Exam Vital Signs Vital Signs Date Time Temp Pulse Resp B/P Pulse Ox O2 Delivery O2 Flow Rate FiO2 05/12/17 17:30 98.1 61 20 174/87 97 Nasal Cannula 2 05/12/17 17:15 60 14 172/86 96 05/12/17 17:00 60 16 174/89 93 05/12/17 16:45 60 22 174/89 93 05/12/17 16:30 61 20 174/94 96 05/12/17 16:15 63 19 179/92 94 05/12/17 16:00 69 16 171/94 99 Nasal Cannula 2 05/12/17 15:47 98.1 74 18 192/94 97 Nasal Cannula 2 05/12/17 09:18 97.8 56 16 173/105 99 Physical Exam GENERAL: This is a well-nourished, well-developed patient, in no apparent distress. SKIN: No rashes, ecchymoses or lesions. Cool and dry. HEAD: Atraumatic. Normocephalic. No temporal or scalp tenderness. EYES: Pupils equal round and reactive. Extraocular motions intact. No scleral icterus. No injection or drainage. ENT: Nose without bleeding, purulent drainage or septal hematoma. Throat without erythema, tonsillar hypertrophy or exudate. Uvula midline. Airway patent. NECK: Trachea midline. No JVD or lymphadenopathy. Supple, nontender, no meningeal signs. CARDIOVASCULAR: Regular rate and rhythm without murmurs, gallops, or rubs. RESPIRATORY: Clear to auscultation. Breath sounds equal bilaterally. No wheezes , rales, or rhonchi. GASTROINTESTINAL: Abdomen soft, non-tender, nondistended. No hepato-splenomegaly , or palpable masses. No guarding. MUSCULOSKELETAL: left knee covered with clean dressing. NEUROLOGICAL: Awake and alert. Cranial nerves II through XII intact. Motor and sensory grossly within normal limits. Five out of 5 muscle strength in all muscle groups. Normal speech. Laboratory Laboratory Tests Test 05/12/17 09:30 Blood Type O POSITIVE Antibody Screen NEGATIVE Blood Bank Comment Date/Time Procedure Status Source Growth 05/12/17 12:35 Gram Stain Received Wound Knee Pending 05/12/17 12:35 Wound Culture Received Wound Knee Pending 05/12/17 12:35 Fungal Smear Received Wound Knee Pending 05/12/17 12:35 Fungal Culture Received Wound Knee Pending 05/12/17 12:35 Acid Fast Stain Received Wound Knee Pending 05/12/17 12:35 Mycobacterial Culture Received Wound Knee Pending Assessment and Plan Assessment and Plan A/P - s/p revision of the left total knee continue with pain control and rehab efforts- management per ortho -hypertension; resumed metoprolol and losartan- clonidine as needed- will monitor and adjust the regimen as needed. -atrial fibrillation- s/p ablation; resume aspirin when ok with ortho -dyslipidemia; resumed statin. -DVT prophylaxis with lovenox- per ortho. thank you for the consult. Discussed Condition With the patient. Joel Bassett MD May 12, 2017 17:50
[2017-05-12] MEDS ORDERED: cloNIDine HCL 0.1 MG TAB PO PRN (18:00)
--- NOTE | 2017-05-12 18:41 | RADRPT ---
EXAM DATE/TIME: 05/12/2017 16:14 [facility] COMPARISON: KNEE LEFT LTD (1 OR 2VWS), February 02, 2017, 20:06. INDICATIONS : Post op left knee. MEDICAL HISTORY : None. SURGICAL HISTORY : Total knee replacement, left. Removal of prosthesis and replacement. ENCOUNTER: Initial ACUITY: 1 day PAIN SCORE: Non-responsive. LOCATION: Left knee FINDINGS: The patient is status post revision of left total knee replacement. Prosthesis appears to be in good position. CONCLUSION: Status post revision of left total knee replacement with prosthesis in good position. Elpidio Soto MD on May 12, 2017 at 18:28 Board Certified Radiologist. This report was verified electronically.
[2017-05-12 20:10] VITALS: BP 164/88; PULSE 66; RESP 20; TEMP 96.2; O2SAT 98
[2017-05-12] MEDS: METOPROLOL TARTRATE 25 MG TAB PO SCH (20:36)
[2017-05-12] MEDS: ATORVASTATIN 40 MG TAB PO SCH (20:36)
[2017-05-12] MEDS: LOSARTAN 25 MG TAB PO SCH (20:36)
[2017-05-12] MEDS: SODIUM CHLORIDE 0.9% FLUSH 5 ML FLUSH IVF SCH (20:38)
[2017-05-12] MEDS: ACETAMINOPHEN 325 MG TAB PO PRN (21:37)
[2017-05-13] VITALS (7 sets, daily range): BP systolic 118–178; BP diastolic 64–79; PULSE 59–77; RESP 17–20; TEMP 96.1–97.3; O2SAT 95–100
[2017-05-13] MEDS: SODIUM CHLOR 0.9% 1000 ML INJ 1,000 ML IV SCH ×3 (01:58→23:00)
[2017-05-13] MEDS ORDERED: DEXAMETHASONE SOD PHOS 20 MG/5 ML VIAL IV ONE (07:45)
[2017-05-13 08:13] LABS: HEMATOCRIT 31.5 % (39.0-51.0); MEAN CELL VOLUME 84.6 FL (80.0-100.0); MEAN CORPUSCULAR HEMOGLOBIN 28.6 PG (27.0-34.0); MEAN CORPUSCULAR HGB CONC 33.8 % (32.0-36.0); PLATELET COUNT 205 TH/MM3 (150-450); RED BLOOD COUNT 3.73 MIL/MM3 (4.50-5.90); RED CELL DISTRIBUTION WIDTH 16.9 % (11.6-17.2); REVIEW FLAG FINAL; WHITE BLOOD COUNT 14.8 TH/MM3 (4.0-11.0)
[2017-05-13] MEDS: SODIUM CHLORIDE 0.9% FLUSH 5 ML FLUSH IVF SCH ×2 (08:34→22:38)
[2017-05-13] MEDS: MAGNESIUM HYDROXIDE SUSP 30 ML CUP PO PRN (08:42)
[2017-05-13] MEDS: METOPROLOL TARTRATE 25 MG TAB PO SCH ×2 (08:42→22:38)
[2017-05-13] MEDS: LOSARTAN 25 MG TAB PO SCH ×2 (08:42→22:37)
[2017-05-13] MEDS: ACETAMINOPHEN 325 MG TAB PO PRN ×3 (08:43→22:36)
--- NOTE | 2017-05-13 10:57 | HHI.PR ---
Subjective Remarks Doing well postop. No complaints. He is hoping to discharge to home once his functional status improves. Objective Vital Signs Date Time Temp Pulse Resp B/P Pulse Ox O2 Delivery O2 Flow Rate FiO2 05/13/17 09:54 95 05/13/17 08:34 Room Air 05/13/17 08:00 97.1 73 18 151/69 100 05/13/17 05:57 21 05/13/17 04:39 96.7 77 19 118/64 97 05/13/17 00:39 97.3 72 20 146/76 97 05/12/17 20:10 96.2 66 20 164/88 98 05/12/17 18:00 98.1 62 18 176/81 98 Nasal Cannula 2 05/12/17 17:45 60 16 176/84 96 05/12/17 17:30 98.1 61 20 174/87 97 Nasal Cannula 2 05/12/17 17:30 61 16 174/87 97 05/12/17 17:15 60 14 172/86 96 05/12/17 17:00 60 16 174/89 93 05/12/17 16:45 60 22 174/89 93 05/12/17 16:30 61 20 174/94 96 05/12/17 16:15 63 19 179/92 94 05/12/17 16:00 69 16 171/94 99 Nasal Cannula 2 05/12/17 15:47 98.1 74 18 192/94 97 Nasal Cannula 2 I/O 05/12/17 05/12/17 05/12/17 05/13/17 05/13/17 05/13/17 06:59 14:59 22:59 06:59 14:59 22:59 Intake Total 2635 ml 1312 ml Output Total 1680 ml 460 ml 450 ml Balance 955 ml 852 ml -450 ml Intake Oral 360 ml 480 ml IV Total 475 ml 832 ml Other 1800 ml Output Urine Total 250 ml 400 ml 450 ml Drainage Total 380 ml 60 ml Estimated Blood Loss 400 ml Other 650 ml # Bowel Movements 0 0 Result Diagram: 05/13/17 0637 Objective Remarks GENERAL: NAD, A&Ox3 HEAD: Normocephalic. NECK: Supple, trachea midline. No lymphadenopathy. EYES: No scleral icterus. No injection or drainage. CARDIOVASCULAR: Regular rate and rhythm without murmurs, gallops, or rubs. RESPIRATORY: Breath sounds equal bilaterally. No accessory muscle use. GASTROINTESTINAL: Abdomen soft, non-tender, nondistended. MUSCULOSKELETAL: No cyanosis, or edema. SKIN: Warm and dry. NEURO: No focal neurological deficitis. A/P Problem List: (1) Status post revision of total knee ICD Code: Z96.659 Assessment and Plan Assessment and Plan 62-year-old male status post revision of the left knee (spacer, placed for infection, replacement artificial joint) Status post left TKA revision Continue pain control Continue rehabilitation Orthopedic surgery following Hypertension Metoprolol and losartan continued When necessary clonidine Follow blood pressures Atrial fibrillation Resume aspirin Dyslipidemia Statin Follow as an outpatient DVT prophylaxis Lovenox Discharge planning Once functional status improves patient will discharge to home Jeremiah Mehta MD May 13, 2017 10:57 am
--- NOTE | 2017-05-13 12:29 | PD.ORT.PN ---
Subjective Post Op Day #: 1 Subjective Remarks Patient resting comfortably in bed with minimal pain. Patient has been ambulatory. Patient wanting to go home Wednesday if possible. Objective Vitals Vital Signs Date Time Temp Pulse Resp B/P Pulse Ox O2 Delivery O2 Flow Rate FiO2 05/13/17 11:06 96.1 62 18 178/79 100 05/13/17 09:54 95 05/13/17 08:34 Room Air 05/13/17 08:00 97.1 73 18 151/69 100 05/13/17 05:57 21 05/13/17 04:39 96.7 77 19 118/64 97 05/13/17 00:39 97.3 72 20 146/76 97 05/12/17 20:10 96.2 66 20 164/88 98 05/12/17 18:00 98.1 62 18 176/81 98 Nasal Cannula 2 05/12/17 17:45 60 16 176/84 96 05/12/17 17:30 98.1 61 20 174/87 97 Nasal Cannula 2 05/12/17 17:30 61 16 174/87 97 05/12/17 17:15 60 14 172/86 96 05/12/17 17:00 60 16 174/89 93 05/12/17 16:45 60 22 174/89 93 05/12/17 16:30 61 20 174/94 96 05/12/17 16:15 63 19 179/92 94 05/12/17 16:00 69 16 171/94 99 Nasal Cannula 2 05/12/17 15:47 98.1 74 18 192/94 97 Nasal Cannula 2 I/O 05/12/17 05/12/17 05/12/17 05/13/17 05/13/17 05/13/17 07:00 15:00 23:00 07:00 15:00 23:00 Intake Total 2635 ml 1312 ml Output Total 1680 ml 460 ml 650 ml Balance 955 ml 852 ml -650 ml Intake Oral 360 ml 480 ml IV Total 475 ml 832 ml Other 1800 ml Output Urine Total 250 ml 400 ml 550 ml Drainage Total 380 ml 60 ml 100 ml Estimated Blood Loss 400 ml Other 650 ml # Bowel Movements 0 0 Result Diagram: 05/13/17 0637 Imaging Last 24 hours Impressions Knee X-Ray 05/12/17 1523 Signed Impressions: Service Date/Time: Friday, May 12, 2017 16:14 - CONCLUSION: Status post revision of left total knee replacement with prosthesis in good position. Elpidio Soto MD Procedures Left revision TKA Objective Remarks The patient's dressing is C/D/I. EHL/TA/G intact. 2+ pedal pulse. Calf is soft and nontender. + SILT. Drain intact with small to moderate serous drainage. No growth with intraoperative CX as of today. Assessment & Plan Ortho Post Op Day #: 1 Problem List: Assessment and Plan POD #1: Left revision TKA 1. WBAT LLE 2. Lovenox followed ASA for DVT prophylaxis 3. Continue to follow intraoperative CX 4. Ice to the left knee PRN 5. Anticipatory discharge home with home health Wednesday or Wednesday. 6. Maintain dressing and drain until Wednesday. If drainage is minimal drain can be pulled. Jeremiah Younger May 13, 2017 12:29
[2017-05-13] MEDS: ENOXAPARIN SODIUM 40 MG/0.4 ML SYRINGE SQ SCH (14:20)
[2017-05-13] MEDS ORDERED: BISACODYL EC 5 MG TABEC PO SCH (21:00)
[2017-05-13] MEDS: VANCOMYCIN INJ 1,000 MG in SODIUM CHLOR 0.9% 250 ML INJ 250 ML IV SCH (22:36)
[2017-05-13] MEDS: MULTIVITAMINS/MINERALS THERAPEUTIC TAB PO SCH (22:37)
[2017-05-13] MEDS: DOCUSATE SODIUM 100 MG CAP PO SCH (22:37)
[2017-05-13] MEDS: ATORVASTATIN 40 MG TAB PO SCH (22:37)
[2017-05-14] VITALS: BP 123/58; PULSE 57; RESP 19; TEMP 96.9; O2SAT 97
[2017-05-14 00:09] VITALS: BP 123/58; PULSE 57; RESP 19; TEMP 96.9; O2SAT 97
[2017-05-14] MEDS: ACETAMINOPHEN 325 MG TAB PO PRN ×2 (05:55→11:41)
[2017-05-14] MEDS: SODIUM CHLOR 0.9% 1000 ML INJ 1,000 ML IV SCH (06:51)
[2017-05-14] MEDS: LOSARTAN 25 MG TAB PO SCH (07:12)
[2017-05-14] MEDS: MAGNESIUM HYDROXIDE SUSP 30 ML CUP PO PRN (07:12)
[2017-05-14] MEDS: MULTIVITAMINS/MINERALS THERAPEUTIC TAB PO SCH (07:12)
[2017-05-14] MEDS: DOCUSATE SODIUM 100 MG CAP PO SCH (07:12)
[2017-05-14] MEDS: VANCOMYCIN INJ 1,000 MG in SODIUM CHLOR 0.9% 250 ML INJ 250 ML IV SCH (07:13)
[2017-05-14] MEDS: METOPROLOL TARTRATE 25 MG TAB PO SCH (07:13)
[2017-05-14] MEDS: SODIUM CHLORIDE 0.9% FLUSH 5 ML FLUSH IVF SCH (07:14)
[2017-05-14 07:19] VITALS: BP 150/73; PULSE 58; RESP 17; TEMP 96.6; O2SAT 100
[2017-05-14 07:20] LABS: HEMATOCRIT 30.8 % (39.0-51.0); MEAN CELL VOLUME 86.1 FL (80.0-100.0); MEAN CORPUSCULAR HEMOGLOBIN 28.5 PG (27.0-34.0); MEAN CORPUSCULAR HGB CONC 33.1 % (32.0-36.0); PLATELET COUNT 204 TH/MM3 (150-450); RED BLOOD COUNT 3.58 MIL/MM3 (4.50-5.90); RED CELL DISTRIBUTION WIDTH 17.2 % (11.6-17.2); REVIEW FLAG FINAL; WHITE BLOOD COUNT 14.7 TH/MM3 (4.0-11.0)
[2017-05-14 07:40] LABS: BICARBONATE 25.8 MEQ/L (21.0-32.0); POTASSIUM 4.4 MEQ/L (3.5-5.1)
[2017-05-14] MEDS ORDERED: ASPIRIN EC 81 MG TABEC PO SCH (09:00)
[2017-05-14] MEDS ORDERED: DOCU100C PO (11:29)
--- NOTE | 2017-05-14 11:32 | HHI.PR ---
Subjective Remarks Continues to do well postop. He feels that his functional status has returned to his preoperative status. He is requesting to discharge to home today. Medically stable for discharge home today if orthopedic surgeons agree. Objective Vital Signs Date Time Temp Pulse Resp B/P Pulse Ox O2 Delivery O2 Flow Rate FiO2 05/14/17 07:19 96.6 58 17 150/73 100 05/14/17 00:09 96.9 57 19 123/58 97 05/14/17 00:00 96.9 57 19 123/58 97 05/14/17 00:00 96.9 57 19 123/58 97 05/13/17 19:30 96.5 76 17 142/67 98 05/13/17 16:51 96.7 59 17 172/77 100 I/O 05/13/17 05/13/17 05/13/17 05/14/17 05/14/17 05/14/17 07:00 15:00 23:00 07:00 15:00 23:00 Intake Total 1312 ml 750 ml 480 ml 480 ml Output Total 460 ml 1680 ml 1610 ml 2050 ml 200 ml Balance 852 ml -930 ml -1130 ml -1570 ml -200 ml Intake Oral 480 ml 750 ml 480 ml 480 ml IV Total 832 ml Output Urine Total 400 ml 1500 ml 1500 ml 2000 ml 200 ml Drainage Total 60 ml 180 ml 110 ml 50 ml # Bowel Movements 0 0 0 0 1 Result Diagram: 05/14/17 0647 05/14/1747 Objective Remarks GENERAL: NAD, A&Ox3 HEAD: Normocephalic. NECK: Supple, trachea midline. No lymphadenopathy. EYES: No scleral icterus. No injection or drainage. CARDIOVASCULAR: Regular rate and rhythm without murmurs, gallops, or rubs. RESPIRATORY: Breath sounds equal bilaterally. No accessory muscle use. GASTROINTESTINAL: Abdomen soft, non-tender, nondistended. MUSCULOSKELETAL: No cyanosis, or edema. SKIN: Warm and dry. NEURO: No focal neurological deficitis. A/P Problem List: (1) Status post revision of total knee ICD Code: Z96.659 Assessment and Plan Assessment and Plan 62-year-old male status post revision of the left knee (spacer, placed for infection, replacement artificial joint). Doing well postop. Ambulatory with a walker now. Medically stable for discharge today. Status post left TKA revision Continue pain control Continue rehabilitation Orthopedic surgery following Hypertension Metoprolol and losartan continued When necessary clonidine Follow blood pressures Atrial fibrillation Resume aspirin Dyslipidemia Statin Follow as an outpatient DVT prophylaxis Lovenox Discharge planning Medically cleared for discharge home today. Jeremiah Mehta MD May 14, 2017 11:32 am
[2017-05-14 11:34] VITALS: O2SAT 98
[2017-05-14 11:42] VITALS: BP 156/70; PULSE 57; RESP 16; TEMP 97.4; O2SAT 100
[2017-05-14] MEDS: ENOXAPARIN SODIUM 40 MG/0.4 ML SYRINGE SQ SCH (13:57)
[2017-05-14 14:14] VITALS: BP 127/58; PULSE 69; RESP 16; TEMP 96.4; O2SAT 100
--- NOTE | 2017-05-14 15:55 | MP ---
cc: NNAMDI GALINDO M.D. DATE OF SURGERY: 05/12/2017 PREOPERATIVE DIAGNOSIS: Left knee, infected total knee arthroplasty, status post resection arthroplasty with placement of antibiotic spacer. POSTOPERATIVE DIAGNOSIS Left knee, infected total knee arthroplasty, status post resection arthroplasty with placement of antibiotic spacer. SURGEON Nnamdi Galindo MD. RECEIVER STOCKER: MIRELLA Graves. RECEIVER STOCKER JeremiahMIRELLA Alfredo The surgical procedure was assisted by my Advanced Registered Nurse Practitioner. My JAVA SOFTWARE DEVELOPER presence was necessary throughout this case for the manipulation and positioning of the surgical extremity. My JAVA SOFTWARE DEVELOPER was assisting me throughout the duration of this procedure. The skill set of an Advance Registered Nurse Practitioner was medically necessary to complete this procedure. During the surgical case, the surgical clinical reviewer was working at the back table and the Advance Registered Nurse Practitioner was directly assisting me. PROCEDURE: Left knee revision total knee arthroplasty. CULTURES: Intraoperative cultures are 2 culture swabs plus a specimen sent to the pathologist for review. ESTIMATED BLOOD LOSS: 400 cc COMPLICATIONS None. ANESTHESIA Abductor canal block and general anesthesia. DRAINS: The drains are one-eighth inch Hemovac. TOURNIQUET TIME: 121 minutes at 300 mmHg pressure. IMPLANTS: Tissue Regenixuy the femur SONIA three a size five left, universal femoral sleeve size 40 full porous adapter bolt neutral, femoral adapter 5 degrees, posterior augment size five 8 mm, posterior augment size five 8 mm distal augment size five 4 mm, distal augment size 5, 8 mm, universal stem fluted 115 mm x 18 mm. The tibial component rotating platform MBT tray a size four metaphysis sleeve size 37, universal stem fluted 75 x 18 and then polyethylene insert is sigma tibial insert rotating platform TC3 size five, 12.5 thickness. JUSTIFICATION FOR PROCEDURE This patient had undergone a knee replacement by outside physician. He did have treatment with surgical management which ultimately failed for infection of the knee and required removal of the entire prosthesis and implantation of antibiotic spacer. The patient did have MRSA cultures from February 02, 2017. That was the time he had the prosthesis removed irrigated, debrided placement of antibiotic spacer and the patient had intravenous antibiotics. He was followed by infectious disease physician who felt that there are no signs residual infection and gave us clearance move forward with revision surgery. The patient understood the risks and benefits of surgical management. See the office notes for further details and risks as explained. He does specifically understand there is risk of recurrent infection. Note that he does understand risks include injury to nerves, blood vessels, bleeding, continued infection, a need for reoperation, loss range of motion of the knee, instability about the knee. Failure of prosthesis and medical complications such as, pulmonary embolus, pneumonia, Deep venous thrombosis, myocardial infarction and . The patient brought back to up theater. The patient received intravenous antibiotics. Note that he did have an adductor canal block and general anesthesia administered. Left lower extremity was prepped and draped in the usual sterile fashion. We made standard anterior incision after the tourniquet had been raised following exsanguination. Subcutaneous tissue was unremarkable other than thick scar tissue which was noted, we preformed a medial parapatellar arthrotomy which showed the patient had a moderate-sized effusion of clear, slightly brownish fluid. We took two swabs of this, although this had no signs of overt infection. We then took some areas of synovium. There were no areas that looked particularly reactive in nature as we took several different samples from different parts of the knee. We then later on after we got the antibiotic spacer off we took another sample from underneath this. We took all these samples and sent them down for acute pathologic analysis, the pathologist called me on the phone and told me he saw no signs of active infection from these samples. We did start to move on with the revision. We obtained exposure with subluxing the patella. We needed to remove quite a bit of scar tissue. We did perform a lateral release to assist with this, we removed scar from the medial lateral gutters. We took care not to injure the medial lateral ligaments the cement spacers from the distal femur and proximal tibia were both removed along with the cement that was placed in the metaphysis region of both these areas. There is no bone loss associated removing the cement, although there was further bone loss from the previous infection and removal of the other prosthesis. We started with preparation of proximal tibia. We did so by entering the canal sequentially hand reaming. We then broached for sleeve and then we cut the tibia. A nice, flat surface for the tibial component. We trialed this with appropriate slope noted. We turned attention to distal femur entered distal femoral canal. We also performed a hand reaming followed by broaching for metaphysis sleeve followed by trialing ultimately we needed to go with a size five on the distal femur as we can only go up one size compared to the tibia which was a size 4. The size 5 fit pretty well but seemed to be a little small on the medial side. We made distal femoral resections using the guides. This helped us establish augments that we were going to place and since there was deficiency distally. We ended up placing the distal augment of 8 on the lateral side, distal augment of 4 on the medial side and then we required to posterior augments a size 8 after we had completed our four chamfer cuts to help us determine the amount of augments. We cut the chamfer cuts in neutral position in relation to the epicondylar access. Ultimately removed only a little bit of bone from the femur so we could preserve as much as possible. We cut the box centrally and then trialed the femur and trialed the entire knee and then removed the trials and thoroughly irrigated. We made sure that we removed any of the membrane that had built up on the endosteal canal and also any overgrown synovium and thoroughly irrigated. We constructed the femoral and tibial components on the back table in the appropriate positions and rotations as the fit on the metaphyseal region and tightened these all with the appropriate tensioning devices, see the details of the individual components as described in the beginning of the operative note. We then cemented in the components, and removed excess cement. The cement was just on the proximal tibia and distal femur. We did not put cement into the metaphysis region to offer bony ingrowth into the sleeve. We retrialed the knee, we went with a 12.5 polyethylene which gave full extension to gravity and then gravity flexion 140 degrees and very good stability to varus or valgus stress testing. Tourniquet was released. Hemostasis was achieved and was thoroughly irrigated, placed a deep drain closed the arthrotomy site with #1 Vicryl in [id number] fashion. We closed part of the lateral release site laterally left part open and then closed skin with 2-0 Vicryl followed by mitchell. Postop plan is to follow the intraoperative cultures, although again we have fairly low suspicion for infection. He can weight bear as tolerated, we will give DVT prophylaxis with SCDs, ELIANE hose, early mobilization and Lovenox followed by aspirin. NnamdiMD GAUTAM Gurrola/ /3:32 PM /2:53 PM
--- NOTE | 2017-05-14 16:56 | PD.ORT.PN ---
Subjective Subjective Remarks no pain. ambulating well Objective Vitals Vital Signs Date Time Temp Pulse Resp B/P Pulse Ox O2 Delivery O2 Flow Rate FiO2 05/14/17 14:14 96.4 69 16 127/58 100 05/14/17 11:42 97.4 57 16 156/70 100 05/14/17 11:34 98 21 05/14/17 07:19 96.6 58 17 150/73 100 05/14/17 00:09 96.9 57 19 123/58 97 05/14/17 00:00 96.9 57 19 123/58 97 05/14/17 00:00 96.9 57 19 123/58 97 05/13/17 19:30 96.5 76 17 142/67 98 I/O 05/13/17 05/13/17 05/13/17 05/14/17 05/14/17 05/14/17 07:00 15:00 23:00 07:00 15:00 23:00 Intake Total 1312 ml 750 ml 480 ml 480 ml Output Total 460 ml 1680 ml 1610 ml 2050 ml 200 ml Balance 852 ml -930 ml -1130 ml -1570 ml -200 ml Intake Oral 480 ml 750 ml 480 ml 480 ml IV Total 832 ml Output Urine Total 400 ml 1500 ml 1500 ml 2000 ml 200 ml Drainage Total 60 ml 180 ml 110 ml 50 ml # Bowel Movements 0 0 0 0 1 Result Diagram: 05/14/17 0647 05/14/17 0647 Imaging Last 24 hours Impressions Knee X-Ray 05/12/17 1523 Signed Impressions: Service Date/Time: Friday, May 12, 2017 16:14 - CONCLUSION: Status post revision of left total knee replacement with prosthesis in good position. Elpidio Soto MD Procedures Left revision TKA Objective Remarks The patient's incision is C/D/I. There is mild bloody drainage from the drain site (drain has been d/cd) EHL/TA/G intact. 2+ pedal pulse. Calf is soft and nontender. + SILT. No growth with intraoperative CX as of today (48 hours). Assessment & Plan Assessment and Plan POD #1: Left revision TKA 1. WBAT LLE 2. Lovenox followed ASA for DVT prophylaxis 3. Culx NGTD 4. Ice to the left knee PRN 5. Ok for d/c home today Nnamdi Kebede MD May 14, 2017 16:56
--- NOTE | 2017-05-16 21:54 | HHI.DS ---
Discharge Summary Admission Date May 12, 2017 at 08:07 Discharge Date: May 14, 2017 Admitting Diagnosis Left infected TKA Revision total knee replacement, left Diagnosis: (1) Infection of total left knee replacement Diagnosis: Principal (2) Status post revision of total knee Diagnosis: Principal Procedures Left revision TKA Brief History This is a 62 year old male patient with previously infected TKA. Patient had underwent surgery that consisted of poly exchange with I&D. The patient had a recurrent infection and was taken back to surgery to have hardware removed and ABX spacer and beads placed with I&D. Patient was taken back to surgery for removal of ABX spacer and placement of revision hardware. CBC/BMP: 05/14/17 0647 05/14/17 0647 Significant Findings Laboratory Tests Test 05/14/17 06:47 White Blood Count 14.7 TH/MM3 (4.0-11.0) Red Blood Count 3.58 MIL/MM3 (4.50-5.90) Hemoglobin 10.2 GM/DL (13.0-17.0) Hematocrit 30.8 % (39.0-51.0) Blood Urea Nitrogen 20 MG/DL (7-18) Estimat Glomerular Filtration 84 ML/MIN (>89) Rate Random Glucose 117 MG/DL (74-106) PE at Discharge The patient's incision is C/D/I. There is mild bloody drainage from the drain site (drain has been d/cd) EHL/TA/G intact. 2+ pedal pulse. Calf is soft and nontender. + SILT. No growth with intraoperative CX as of today (48 hours). Hospital Course The patient was admitted to the hospital for removal of ABX spacer and placement of revision hardware for a revision TKA. The patient's surgery went well with no complication. The patient was allowed to be WBAT on the LLE. The patient was placed on a regular diet. The patient was placed on Lovenox followed by ASA for DVT prophylaxis. The patient was discharged home with home health and will f/u with Dr. Kebede as previously scheduled. Pt Condition on Discharge: Stable Discharge Disposition: Disch w/ Home Health Serv Discharge Instructions Diet Instructions: As Tolerated, No Restrictions Activities You Can Perform: Weight Bearing as Claudy Activities to Avoid: Strenuous Activity Follow up Referrals: Orthopedics with Nnamdi Kebede MD PCP Follow-up - 2 Weeks New Medications: Aspirin (Aspirin) 325 Mg Tab 325 MG PO DAILY Start Aspirin after Lovenox is completed. Prevent Blood Clot # 30 Ref 0 TAB Commode 3-in-1 (Commode 3-in-1) 1 Mis Mis 1 EA .ROUTE DIRECTED #1 Ref 0 EA CPM-Continuous Passive Motion Machine (CPM-Continuous Passive Motion Machine) 1 Ea Device 1 EA .ROUTE DIRECTED #1 Ref 0 EA Docusate Sodium (Docusate Sodium) 100 Mg Cap 100 MG PO BID PRN CONSTIPATION #60 Ref 0 CAP Enoxaparin Inj (Lovenox Inj) 40 Mg/0.4 Ml Syr 40 MG SQ DAILY Start Aspirin after Lovenox is completed. Blood Clot Prevention # 10 Ref 0 SYRINGE Hydrocodone-Acetaminophen ([place]) 5-325 mg Tab 1-2 TAB PO Q4H PRN PAIN #60 Ref 0 TAB Walker with Front Wheels (Walker with Front Wheels) 1 Mis Mis 1 EA .ROUTE DIRECTED #1 Ref 0 EA Continued Medications: Atorvastatin (Atorvastatin) 40 Mg Tab 40 MG PO HS Cholesterol Management #30 Ref 0 TAB Losartan (Cozaar) 25 Mg Tab 25 MG PO BID Blood Pressure Management #30 Ref 0 TAB Metoprolol Tartrate (Metoprolol Tartrate) 75 Mg Tab 75 MG PO BID Blood Pressure Management #60 Ref 0 TAB Discontinued Medications: Aspirin (Aspirin) 325 Mg Tab 325 MG PO DAILY Start Aspirin after Lovenox is completed. Prevent Blood Clot # 30 Ref 0 TAB Jeremiah Younger May 16, 2017 21:54
== END 2017-05-14 17:28 | disposition home health service (06) | DRG 940 ==
LOC: HSDI 05-12 08:07 → N06A 05-12 18:21
PROVIDERS: ADMIT Orthopaedic Surgery; ATTEND Orthopaedic Surgery
PROC: 0SRD0J9 Replacement of Left Knee Joint with Synthetic Substitute, Cemented, Open Approach (ICD-10-PCS; 2017-05-12)
PROC: 3E0T3BZ Introduction of Anesthetic Agent into Peripheral Nerves and Plexi, Percutaneous Approach (ICD-10-PCS; 2017-05-12)
PROC: 0SPD0JZ Removal of Synthetic Substitute from Left Knee Joint, Open Approach (ICD-10-PCS; principal; 2017-05-12 11:23)
DX: T84.54XD Infection and inflammatory reaction due to internal left knee prosthesis, subsequent encounter (principal); Z68.42 Body mass index [BMI] 45.0-49.9, adult; I10 Essential (primary) hypertension; E66.9 Obesity, unspecified; I48.91 Unspecified atrial fibrillation; M19.90 Unspecified osteoarthritis, unspecified site; E78.5 Hyperlipidemia, unspecified; Z87.891 Personal history of nicotine dependence
CPT/HCPCS: 73560; 80048; 85027; 86850; 86900; 86901; 87015; 87070; 87102; 87116; 87205; 87206; 88305; 88331; 94150; C1776; J0171; J0690; J0735; J1100; J1170; J1580; J1650; J1885; J2250; J2405; J2795; J3010; J3370; J7030; J7050; J7120; L1830